=== PATIENT | female | born 1960 | race Caucasian/White ===

== ENCOUNTER 2020-09-16 15:53 | Outpatient (REF) | payer OTHER, SELFPAY ==
--- NOTE | ~2020-09-16 | XR_ITS ---
EXAMINATION: XR LUMBOSACRAL SPINE CLINICAL INFORMATION: Pain. COMPARISON: None TECHNIQUE: Three views of the lumbosacral spine. FINDINGS: There is normal lumbar lordosis. The vertebral heights, alignment and disc heights are normal. The intervening disc heights are normal. There is no visible acute fracture, dislocation or lytic process. The paravertebral soft tissues are normal. The SI joints are normal. XR/XR lumbar spine 2-3V IMPRESSION: Unremarkable lumbar spine exam.
== END 2020-09-16 15:54 | disposition home or self-care (01) ==
LOC: HO.XRAY 15:53
PROVIDERS: PCP Internal Medicine; Visit Provider Internal Medicine
DX: M54.9 Dorsalgia, unspecified (principal)
CPT/HCPCS: 72100

== ENCOUNTER 2020-09-22 13:49 | Emergency (ER) | payer OTHER, SELFPAY ==
[2020-09-22 15:09] VITALS: BP 140/80; PULSE 83; RESP 16; TEMP 36.8; O2SAT 99; BMI 26.2
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
[2020-09-22] MEDS: Ketorolac Tromethamine 30 MG/ML VIAL IM (16:36)
== END 2020-09-22 16:42 | disposition home or self-care (01) ==
PROVIDERS: Emergency Provider Emergency Medicine; PCP Internal Medicine
DX: M62.838 Other muscle spasm (principal); M54.6 Pain in thoracic spine; F17.210 Nicotine dependence, cigarettes, uncomplicated
CPT/HCPCS: 96372; 99283; 99284; J1885

== ENCOUNTER 2022-11-08 14:17 | Outpatient (AMB) | payer OTHER, SELFPAY ==
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
[2022-11-08 14:20] VITALS: BP 130/76; PULSE 76; O2SAT 97; BMI 22.5
== END 2022-11-08 14:32 | disposition home or self-care (01) ==
PROVIDERS: PCP Internal Medicine; Visit Provider Internal Medicine
DX: F41.9 Anxiety disorder, unspecified (principal)
CPT/HCPCS: 99213

== ENCOUNTER 2022-11-13 08:44 | Outpatient (REF) | payer OTHER, SELFPAY ==
[2022-11-13 08:54] LABS: MANUAL DIFF FLAG NO
[2022-11-13 10:14] LABS: Basophils Absolute Auto 0.1 X10*3/uL (0.0-0.2); Basophils Percent Auto 0.8 % (0-2); Eosinophils Absolute Auto 0.2 X10*3/uL (0.0-0.4); Eosinophils Percent Auto 3.1 % (0-4); Hematocrit 40.6 % (37.0-47.0); Hemoglobin 13.5 g/dl (12.0-16.0); Imm Gran Abs Auto 0.01 X10*3/uL (0.00-0.03); Imm Gran Pct Auto 0.2 % (0.0-0.4); Lymphocytes Absolute Auto 2.3 X10*3/uL (1.2-4.9); Lymphocytes Percent Auto 35.3 % (20-40); Mean Corpuscular HGB Conc 33.3 g/dl (31.0-35.0); Mean Corpuscular Hemoglobin 29.5 pg (27.0-33.0); Mean Corpuscular Volume 88.6 fL (80.0-98.0); Mean Platelet Volume 10.7 fL (9.4-12.3); Monocytes Absolute Auto 0.4 X10*3/uL (0.1-1.2); Monocytes Percent Auto 6.9 % (2-11); Neutrophils Absolute Auto 3.4 x10*3/uL (2.0-8.3); Neutrophils Percent Auto 53.7 % (45-73); Platelet Count 207 X10*3/uL (160-400); Red Blood Count 4.58 X10*6/uL (4.20-5.50); Red Cell Distribution Width 13.2 % (11.0-16.0); White Blood Count 6.4 X10*3/uL (4.8-10.8)
[2022-11-13 11:02] LABS: Alanine Aminotransferase 13 U/L (0-31); Alkaline Phosphatase 60 U/L (39-117); Anion Gap 15 (12-20); Aspartate Amino Transferase 23 U/L (5-31); Bilirubin Total 0.6 mg/dL (0.0-1.0); Blood Urea Nitrogen 13 mg/dL (9-16); Calcium 9.2 mg/dL (8.4-10.2); Carbon Dioxide 24 mmol/L (22-29); Chloride 109 mmol/L (96-108); Cholesterol 200 mg/dL; Estimated Glomerular Filt Rate > 60; Glucose Fasting 89 mg/dL (60-99); HDL Cholesterol 51 mg/dL; LDL Cholesterol Calculated 132 mg/dl; Potassium 3.8 mmol/L (3.3-5.1); Sodium 144 mmol/L (135-145); Total Protein 6.9 g/dL (6.5-8.0); Triglycerides 86 mg/dL
== END 2022-11-13 08:45 | disposition home or self-care (01) ==
LOC: HO.LAB 08:44
PROVIDERS: PCP Internal Medicine; Visit Provider Internal Medicine
DX: E78.5 Hyperlipidemia, unspecified (principal); N28.9 Disorder of kidney and ureter, unspecified; E03.9 Hypothyroidism, unspecified; D64.9 Anemia, unspecified
CPT/HCPCS: 36415; 80053; 80061; 84443; 85025

== ENCOUNTER 2022-12-11 08:48 | Outpatient (AMB) | payer OTHER, SELFPAY ==
--- NOTE | 2022-12-11 08:52 | A.OFFPC_ITS ---
Vital Signs 12/11/22 08:54 Height 5 ft 2 in Weight 123 lb 8 oz BMI 22.6 BP 110/70 Blood Pressure Location Lt brachial Position Sitting Pulse 86 Pulse Source Pulse Oximeter Pulse Oximetry (%) 97 Oxygen Delivery Method Room Air Intake Visit Reasons: 1mth f/u Intake Note: Patient is here to follow up on anxiety . Cctv Technician Required: No Drop Hammer Set Up Operator: Not Required per policy Accompanied by: Self / Same As Patient Allergies sulfamethoxazole [From BACTRIM] Allergy (Severe, Verified 12/11/22 08:53) ANAPHYLAXIS trimethoprim [From BACTRIM] Allergy (Severe, Verified 12/11/22 08:53) ANAPHYLAXIS acetaminophen [From PERCOCET] Allergy (Unknown, Verified 12/11/22 08:53) UNKNOWN oxycodone [From PERCOCET] Allergy (Unknown, Verified 12/11/22 08:53) UNKNOWN Tobacco use date assessed: 12/11/22 Fall risk assessment: No Falls in past year Last assessed Fall Risk: 12/11/22 Dental Screening Dental Screen Date: 12/11/22 Did you have a dental visit in the last 12 months?: No Did you have a dental problem in the last 6 months where you did not have access to dental care?: No Was dental information given to patient?: No HPI 1mth f/u HPI Details depression; refuses rx; waiting for therapist at [facility] Medical History (Updated 12/11/22 @ 09:30 by Dillon Mcgovern MD) Anxiety Surgical History No pertinent past surgical history Family History Father No problems noted. Mother No problems noted. Social History (Updated 12/11/22 @ 09:01 by MELONIE Adorno) Housing: Apartment Alcohol intake: never Patient Tobacco Use Status: Current someday Tobacco user Tobacco use type: Cigarette Cigarettes Per Day: 5 Years Smoked: 50 e-Cigarette/Vaping Use: Never Used Second Hand Smoke Exposure: Yes service: No Current occupational status: unemployed Cognitive needs: No Hearing needs: No Vision needs: No Questionnaire PHQ-9 Over the last 2 weeks, how often have you been bothered by any of the following problems? Depression Screening Interpretation: Negative Source: Developed by Drs. Wyatt Tang, Alaina Srivastava, Raimundo Burks and colleagues, with an educational harry from [employer]. Thrive Questionnaire Date Thrive assessed: 08/04/22 Currently or been in a relationship where the following occur: no concerns reported MARLINE-7 AMB Questionnaire MARLINE-7 Date MARLINE - 7 assessed: 12/11/22 Feeling nervous, anxious, or on edge: 1 = Several days Not being able to stop or control worryin = Several days Worrying too much about different things: 1 = Several days Trouble relaxin = Several days Being so restless that it is hard to sit still: 3 = Nearly every day Becoming easily annoyed or irritable: 1 = Several days Feeling afraid as if something awful might happen: 3 = Nearly every day Total MARLINE-7 score (0-4 normal; 5-9 mild; 10-14 moderate; 15-21 severe): 11 Source: Developed by Drs. Wyatt Tang, Alaina Srivastava, Raimundo Burks and colleagues, with an educational harry from [employer]. Review of Systems Const Denies chills, Denies headache(s) and Denies weight loss ENT Denies headache(s) Card Denies chest pain, Denies syncope, Denies irregular heart rhythm and Denies dyspnea Resp Denies chest congestion, Denies cough and Denies dyspnea GI Denies abdominal pain, Denies change in stool character, Denies nausea and Denies vomiting Musc Denies deformity and Denies joint swelling Neuro Denies syncope and Denies headache(s) Physical exam (Primary Care) Vital Signs: Last Vital Signs Pulse 86 12/11/22 08:54 BP 110/70 12/11/22 08:54 Pulse Ox 97 12/11/22 08:54 Oxygen Delivery Method Room Air 12/11/22 08:54 BMI result Body Mass Index 22.6 Tobacco/Smoking Status: Tobacco use Status Tobacco use date assessed 12/11/22 12/11/22 09:04 Patient Tobacco Use Status Current someday Tobacco 12/11/22 09:01 Tobacco use type Cigarette 12/11/22 09:01 e-Cigarette/Vaping Use Never Used 12/11/22 09:01 Depression Screening Interpretation: Negative Thrive Assessment: Date of Thrive Assessment Date Thrive assessed 08/04/22 12/11/22 08:52 Currently or been in a relationship where the following occur: no concerns reported Const General: cooperative, comfortable and no acute distress HENMT Head: Yes normal to inspection Eyes General: appearance normal, both eyes and all related structures Neck Neck: Yes normal visual inspection Skin Other: contact dermatitis on upper chest Assessment and Plan Assessment & Plan (1) Depression: Code(s): F32.A - Depression, unspecified Plan: see therapist Coding Level of Care Code Est Pt Level 3 (67051) Diagnoses Depression F32.A
[2022-12-11 08:54] VITALS: BP 110/70; PULSE 86; O2SAT 97; BMI 22.6
== END 2022-12-11 09:50 | disposition home or self-care (01) ==
PROVIDERS: PCP Internal Medicine; Visit Provider Internal Medicine
DX: F32.A Depression, unspecified (principal)
CPT/HCPCS: 99213

== ENCOUNTER 2023-03-16 09:00 | Outpatient (AMB) | payer MEDICARE, MEDICAID, SELFPAY ==
[2023-03-16 09:01] VITALS: BP 116/70; PULSE 82; O2SAT 99; BMI 25.8
--- NOTE | 2023-03-16 09:01 | A.OFFPC_ITS ---
Vital Signs 03/16/23 09:01 Height 5 ft 2 in Weight 141 lb BMI 25.8 BP 116/70 Blood Pressure Location Lt brachial Position Sitting Pulse 82 Pulse Source Pulse Oximeter Pulse Oximetry (%) 99 Oxygen Delivery Method Room Air Intake Visit Reasons: Annual Exam Director Internal Communications Required: No Lens Matcher: Not Required per policy Accompanied by: Self / Same As Patient Allergies sulfamethoxazole [From BACTRIM] Allergy (Severe, Verified 03/16/23 09:02) ANAPHYLAXIS trimethoprim [From BACTRIM] Allergy (Severe, Verified 03/16/23 09:02) ANAPHYLAXIS acetaminophen [From PERCOCET] Allergy (Unknown, Verified 03/16/23 09:02) UNKNOWN oxycodone [From PERCOCET] Allergy (Unknown, Verified 03/16/23 09:02) UNKNOWN Medication List - Last Reconciled 03/16/23 by Dillon Mcgovern MD albuterol sulfate 90 mcg/actuation (Ventolin HFA) 2 puffs inhalation Q4-6H PRN 30 days ketoconazole 400 mg (2 x 200 mg) PO DAILY Tobacco use date assessed: 12/11/22 Fall risk assessment: No Falls in past year Last assessed Fall Risk: 03/16/23 Dental Screening Dental Screen Date: 03/16/23 Did you have a dental visit in the last 12 months?: Yes Did you have a dental problem in the last 6 months where you did not have access to dental care?: No Was dental information given to patient?: Patient has dentist HPI Annual Exam HPI Details asthma on rx; doing [facility] Medical History Anxiety Surgical History No pertinent past surgical history Family History Father No problems noted. Mother No problems noted. Social History Housing: Apartment Alcohol intake: never Patient Tobacco Use Status: Current someday Tobacco user Tobacco use type: Cigarette Cigarettes Per Day: 5 Years Smoked: 50 e-Cigarette/Vaping Use: Never Used Second Hand Smoke Exposure: Yes service: No Current occupational status: unemployed Cognitive needs: No Hearing needs: No Vision needs: No Questionnaire Thrive Questionnaire Date Thrive assessed: 08/04/22 MARLINE-7 AMB Questionnaire MARLINE-7 Date MARLINE - 7 assessed: 12/11/22 Source: Developed by Drs. Wyatt Tang, Alaina Srivastava, Raimundo Burks and colleagues, with an educational harry from [employer]. Review of Systems Const Denies chills, Denies fatigue, Denies headache(s) and Denies weight loss Eyes Denies change in vision, Denies diplopia and Denies eye pain ENT Denies vertigo, Denies dizziness, Denies headache(s) and Denies nasal discharge Card Denies chest pain, Denies rapid heart rate and Denies dyspnea on exertion Resp Denies chest congestion, Denies cough, Denies pain with cough and Denies dyspnea on exertion GI Denies abdominal pain, Denies hematochezia and Denies change in bowel habits Musc Denies myalgias, Denies arthralgias and Denies joint swelling Skin/Breast Denies lesions and Denies unusual bruising Neuro Denies vertigo, Denies dizziness, Denies headache(s) and Denies focal weakness Endo Denies fatigue Physical exam (Primary Care) Vital Signs: Last Vital Signs Pulse 82 03/16/23 09:01 BP 116/70 03/16/23 09:01 Pulse Ox 99 03/16/23 09:01 Oxygen Delivery Method Room Air 03/16/23 09:01 BMI result Body Mass Index 25.8 Tobacco/Smoking Status: Tobacco use Status Tobacco use date assessed 12/11/22 03/16/23 09:07 Patient Tobacco Use Status Current someday Tobacco 03/16/23 09:07 Tobacco use type Cigarette 03/16/23 09:07 e-Cigarette/Vaping Use Never Used 03/16/23 09:07 Are you ready to quit: No Number of minutes spent counselin CPT code: 08381 - 4-10 Minutes Thrive Assessment: Date of Thrive Assessment Date Thrive assessed 08/04/22 03/16/23 09:07 Const General: cooperative, healthy appearing and no acute distress Orientation/consciousness: oriented to person, oriented to place and oriented to time HENMT Head: Yes normal to inspection, Yes normocephalic and Yes atraumatic Mouth: Normal oral and palatal mucosa present and tongue normal Throat: Yes posterior oropharynx normal and Yes uvula midline Eyes General: appearance normal, both eyes and all related structures Neck Neck: Yes normal visual inspection, Yes full ROM and Yes no lymphadenopathy Thyroid: Thyroid normal Carotids: normal carotid upstroke Chest Chest palpation & inspection: normal inspection of the chest Resp Effort & Inspection: normal respiratory effort and able to speak in complete sentences Auscultation: clear to auscultation bilaterally Cardio Jugular venous distension: no JVD Palpation: normal PMI Rate: regular rate Rhythm: regular rhythm Heart sounds: S1 normal heart sound present and S2 normal heart sound present GI Inspection: Yes normal to inspection Palpation (GI): Soft to palpation and No hepatosplenomegaly present Auscultation: normal bowel sounds General: Yes no CVA tenderness Back/Spine/Pelvis Back: no CVA tenderness Skin General skin exam: no rashes or lesions noted Neuro General: oriented to person, oriented to place and oriented to time Extrem General: Yes normal to inspection and Yes full ROM Assessment and Plan Assessment & Plan (1) Physical exam: Code(s): Z00.00 - Encounter for general adult medical examination without abnormal findings Plan: stable; do labs (2) Asthma: Code(s): J45.909 - Unspecified asthma, uncomplicated Plan: stable; same rx Orders: Orders Lipid Panel Today E78.5 - Hyperlipidemia, unspecified Complete Blood Count Auto Diff Today D64.9 - Anemia, unspecified Thyroid Stimulating Hormone Today E03.9 - Hypothyroidism, unspecified Comprehensive [place]. Panel Fast Today N28.9 - Disorder of kidney and ureter, unspecified MM tomosynthesis screen imp BI Today Z12.31 - Encounter for screening mammogram for malignant neoplasm of breast Medications: New ketoconazole 400 mg (2 x 200 mg) PO DAILY 60 tabs 3RF Coding Level of Care Code Est Pt Prev Care >65y(62390) Diagnoses Physical exam Z00.00 Asthma J45.909 Additional Codes Vital Signs *Quality* - CPT code: 78036 - 4-10 Minutes ([id number])
== END 2023-03-16 09:25 | disposition home or self-care (01) ==
PROVIDERS: PCP Internal Medicine; Visit Provider Internal Medicine
DX: Z00.00 Encounter for general adult medical examination without abnormal findings (principal); J45.909 Unspecified asthma, uncomplicated
CPT/HCPCS: 99397; 99406

== ENCOUNTER 2023-12-07 09:36 | Outpatient (AMB) | payer MEDICARE, MEDICAID, SELFPAY ==
[2023-12-07 09:37] VITALS: BP 122/72; PULSE 87; O2SAT 96; BMI 24.7
--- NOTE | 2023-12-07 09:37 | A.OFFPC_ITS ---
Vital Signs 12/07/23 09:37 Height 5 ft 2 in Weight 135 lb BMI 24.7 BP 122/72 Blood Pressure Location Lt brachial Position Sitting Pulse 87 Pulse Source Pulse Oximeter Pulse Oximetry (%) 96 Oxygen Delivery Method Room Air Intake Visit Reasons: Sinus infection Allergies sulfamethoxazole [From BACTRIM] Allergy (Severe, Verified 12/07/23 09:38) ANAPHYLAXIS trimethoprim [From BACTRIM] Allergy (Severe, Verified 12/07/23 09:38) ANAPHYLAXIS acetaminophen [From PERCOCET] Allergy (Unknown, Verified 12/07/23 09:38) UNKNOWN oxycodone [From PERCOCET] Allergy (Unknown, Verified 12/07/23 09:38) UNKNOWN Tobacco use date assessed: 12/07/23 Fall risk assessment: No Falls in past year Last assessed Fall Risk: 12/07/23 Dental Screening Dental Screen Date: 12/07/23 Did you have a dental visit in the last 12 months?: Yes Did you have a dental problem in the last 6 months where you did not have access to dental care?: No HPI Sinus infection HPI Details right max sinus pain and pressure PFSH Medical History Anxiety Surgical History No pertinent past surgical history Family History Father No problems noted. Mother No problems noted. Social History Housing: Apartment Alcohol intake: never Patient Tobacco Use Status: Current someday Tobacco user Tobacco use type: Cigarette Cigarettes Per Day: 5 Years Smoked: 50 e-Cigarette/Vaping Use: Never Used Second Hand Smoke Exposure: Yes service: No Current occupational status: unemployed Cognitive needs: No Hearing needs: No Vision needs: No Questionnaire PHQ-9 Over the last 2 weeks, how often have you been bothered by any of the following problems? 1. Little interest or pleasure in doing things: not at all 2. Feeling down, depressed, or hopeless: not at all 3. Trouble falling or staying asleep, or sleeping too much: not at all 4. Feeling tired or having little energy: not at all 5. Poor appetite or overeating: not at all 6. Feeling bad about yourself - or that you are a failure or have let yourself or your family down: not at all 7. Trouble concentrating on things, such as reading the newspaper or watching television: not at all 8. Moving or speaking so slowly that other people could have noticed. Or the opposite - being so fidgety or restless that you have been moving around a lot more than usual: not at all 9. Thoughts that you would be better off or of hurting yourself in some way: not at all Total score: 0 Depression Screening Interpretation: Negative Depression Screening Done: Yes Source: Developed by Drs. Wyatt Tang, Alaina Srivastava, Raimundo Burks and colleagues, with an educational harry from [employer]. Thrive Questionnaire Date Thrive assessed: 12/07/23 I am a: Patient What is your living situation today?: I have a steady place to live Within the past 12 months, did the food you bought not last and you didn't have the money to get more?: Never true Within the past 12 months, did you worry whether your food would run out before you got money to buy more?: Never true Do you have trouble paying for medicines?: No Do you have trouble getting transportation to medical appointments?: No Do you have trouble paying your heating and electricity bill?: No Do you have trouble taking care of your child, family member or friend?: No Do you have trouble with day-to-day activities such as bathing, preparing meals, shopping, managing finances, etc.?: No Are you currently unemployed and looking for a job?: No Are you interested in more education?: No THRIVE Score: 0 AUDIT C Alcohol Use Questionnaire (AUDIT-C) 1. How often do you have a drink containing alcohol?: Never 3. How often do you have six or more drinks on one occasion?: Never Total Score: 0 Score Reviewed/Action Taken: Yes MARLINE-7 AMB Questionnaire MARLINE-7 Date MARLINE - 7 assessed: 12/07/23 Feeling nervous, anxious, or on edge: 0 = Not at all Not being able to stop or control worryin = Not at all Worrying too much about different things: 0 = Not at all Trouble relaxin = Not at all Being so restless that it is hard to sit still: 0 = Not at all Becoming easily annoyed or irritable: 0 = Not at all Feeling afraid as if something awful might happen: 0 = Not at all Total MARLINE-7 score (0-4 normal; 5-9 mild; 10-14 moderate; 15-21 severe): 0 Source: Developed by Drs. Wyatt Tang, Alaina Srivastava, Raimundo Burks and colleagues, with an educational harry from [employer]. MARLINE-7 Assessment Billing MARLINE-7 Assessment Tool: MARLINE-7 Assessment 03505 Review of Systems Const Denies chills, Denies headache(s) and Denies weight loss ENT Denies headache(s) Card Denies chest pain, Denies syncope, Denies irregular heart rhythm and Denies dyspnea Resp Denies chest congestion, Denies cough and Denies dyspnea GI Denies abdominal pain, Denies change in stool character, Denies nausea and Denies vomiting Musc Denies deformity and Denies joint swelling Neuro Denies syncope and Denies headache(s) Physical exam (Primary Care) Vital Signs: Last Vital Signs Pulse 87 12/07/23 09:37 BP 122/72 12/07/23 09:37 Pulse Ox 96 12/07/23 09:37 Oxygen Delivery Method Room Air 12/07/23 09:37 BMI result Body Mass Index 24.7 Tobacco/Smoking Status: Tobacco use Status Tobacco use date assessed 12/07/23 12/07/23 09:39 Patient Tobacco Use Status Current someday Tobacco 12/07/23 09:37 Tobacco use type Cigarette 12/07/23 09:37 e-Cigarette/Vaping Use Never Used 12/07/23 09:37 PHQ-9: PHQ-9 Score PHQ-9: Total score 0 12/07/23 09:44 Depression Screening Interpretation: Negative Thrive Assessment: Date of Thrive Assessment Date Thrive assessed 12/07/23 12/07/23 09:39 Const General: cooperative, comfortable, no acute distress and alert Neck Neck: Yes no lymphadenopathy Thyroid: Thyroid normal Resp Effort & Inspection: normal respiratory effort Auscultation: clear to auscultation bilaterally Percussion: percussion normal Cardio Jugular venous distension: no JVD Palpation: normal PMI Rate: regular rate Rhythm: regular rhythm Heart sounds: S1 normal heart sound present and S2 normal heart sound present GI Inspection: Yes normal to inspection Palpation (GI): No hepatosplenomegaly present Skin General skin exam: no rashes or lesions noted Extrem General: Yes no clubbing, cyanosis or edema Assessment and Plan Assessment & Plan (1) Sinusitis: Code(s): J32.9 - Chronic sinusitis, unspecified Plan: rx sent Medications: New amoxicillin-pot clavulanate 500-125 mg (Augmentin) 1 tab PO BID 10 tabs 0RF Coding Level of Care Code Est Pt Level 3 (48670) Diagnoses Sinusitis J32.9 Additional Codes MARLINE-7 Assessment Billing - MARLINE-7 Assessment Tool: MARLINE-7 Assessment 41392 ([id number])
== END 2023-12-07 09:54 | disposition home or self-care (01) ==
PROVIDERS: PCP Internal Medicine; Visit Provider Internal Medicine
DX: J32.9 Chronic sinusitis, unspecified (principal)
CPT/HCPCS: 99213

== ENCOUNTER 2024-01-03 10:44 | Outpatient (AMB) | payer MEDICARE, MEDICAID, SELFPAY ==
--- NOTE | 2024-01-03 10:58 | A.OFFPC_ITS ---
Vital Signs 01/03/24 11:00 Height 5 ft 2 in Weight 136 lb 8 oz BMI 25.0 BP 130/70 Blood Pressure Location Rt brachial Position Sitting Pulse 76 Pulse Source Pulse Oximeter Pulse Oximetry (%) 97 Oxygen Delivery Method Room Air Intake Visit Reasons: Strained neck Intake Note: Patient is here to follow up on strained neck on the left side and radiate down left arm, ongoing for 7 days. OTC is not helping with pain. Supervising Producer Required: No Customer Experience Analyst: Not Required per policy Accompanied by: Self / Same As Patient Allergies sulfamethoxazole [From BACTRIM] Allergy (Severe, Verified 01/03/24 11:00) ANAPHYLAXIS trimethoprim [From BACTRIM] Allergy (Severe, Verified 01/03/24 11:00) ANAPHYLAXIS acetaminophen [From PERCOCET] Allergy (Unknown, Verified 01/03/24 11:00) UNKNOWN oxycodone [From PERCOCET] Allergy (Unknown, Verified 01/03/24 11:00) UNKNOWN Tobacco use date assessed: 01/03/24 Fall risk assessment: No Falls in past year Last assessed Fall Risk: 01/03/24 Dental Screening Dental Screen Date: 12/07/23 HPI Strained neck HPI Details 63-year-old female presents to the [facility] for a sick visit. I am the covering provider as her regular provider is away. Patient is complaining of neck pain for the past week. Was seen in the emergency room but discharged on no medications. Pain is mostly on the right side of the neck. Does not recall any fall or injury prior to the onset of symptoms. [facility] Medical History Anxiety Surgical History No pertinent past surgical history Family History Father No problems noted. Mother No problems noted. Social History Housing: Apartment Alcohol intake: never Patient Tobacco Use Status: Current someday Tobacco user Tobacco use type: Cigarette Cigarette Packs Per Day: 0.5 Cigarettes Per Day: 4 Years Smoked: 50 e-Cigarette/Vaping Use: Never Used Second Hand Smoke Exposure: Yes service: No Current occupational status: unemployed Cognitive needs: No Hearing needs: No Vision needs: No Questionnaire Thrive Questionnaire Date Thrive assessed: 12/07/23 MARLINE-7 AMB Questionnaire MARLINE-7 Date MARLINE - 7 assessed: 12/07/23 Source: Developed by Drs. Wyatt Tang, Alaina Srivastava, Raimundo Burks and colleagues, with an educational harry from [employer]. Physical exam (Primary Care) Vital Signs: Last Vital Signs Pulse 76 01/03/24 11:00 BP 130/70 01/03/24 11:00 Pulse Ox 97 01/03/24 11:00 Oxygen Delivery Method Room Air 01/03/24 11:00 BMI result Body Mass Index 25.0 Tobacco/Smoking Status: Tobacco use Status Tobacco use date assessed 01/03/24 01/03/24 11:06 Patient Tobacco Use Status Current someday Tobacco 01/03/24 11:06 Tobacco use type Cigarette 01/03/24 11:06 e-Cigarette/Vaping Use Never Used 01/03/24 11:06 Thrive Assessment: Date of Thrive Assessment Date Thrive assessed 12/07/23 01/03/24 11:06 Const General: cooperative and healthy appearing Nutritional Appearance: well nourished Orientation/consciousness: patient oriented x3 Limitations: no limitations HENMT Head: Yes normal to inspection Eyes General: appearance normal, both eyes and all related structures Neck Other: Neck: Right trapezius has mild discomfort. Full range of motion of the head with minimal discomfort. Neck: Yes normal visual inspection Chest Chest palpation & inspection: normal palpation of entire chest wall Resp Effort & Inspection: normal respiratory effort Neuro General: patient oriented x3 Assessment and Plan Assessment & Plan (1) Neck pain: Code(s): M54.2 - Cervicalgia Plan: Rest. Muscle relaxant and heating pad suggested. Anti-inflammatories called in. Medications: New meloxicam 15 mg PO DAILY 14 tabs 0RF cyclobenzaprine 10 mg PO BEDTIME 14 tabs 0RF Coding Level of Care Code Est Pt Level 3 (81487) Complex EM visit Add On G2211 Diagnoses Neck pain M54.2
[2024-01-03 11:00] VITALS: BP 130/70; PULSE 76; O2SAT 97; BMI 25.0
== END 2024-01-03 11:25 | disposition home or self-care (01) ==
LOC: HO.HMCH 10:44
PROVIDERS: PCP Internal Medicine; Visit Provider Internal Medicine
DX: M54.2 Cervicalgia (principal)

== ENCOUNTER → 2024-01-03 10:44 | Outpatient (BNVA) | payer MEDICARE, MEDICAID, SELFPAY | PROVIDERS: PCP Internal Medicine; Visit Provider Internal Medicine | DX: M54.2 Cervicalgia (principal) | CPT/HCPCS: 99212 ==

== ENCOUNTER 2024-01-25 14:10 | Outpatient (AMB) | payer MEDICARE, MEDICAID, SELFPAY ==
[2024-01-25 14:13] VITALS: BP 134/72; PULSE 84; O2SAT 94; BMI 24.7
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
== END 2024-01-25 14:37 | disposition home or self-care (01) ==
PROVIDERS: PCP Internal Medicine; Visit Provider Internal Medicine
DX: J45.909 Unspecified asthma, uncomplicated (principal)

== ENCOUNTER → 2024-01-25 14:10 | Outpatient (BNVA) | payer MEDICARE, MEDICAID, SELFPAY | PROVIDERS: PCP Internal Medicine; Visit Provider Internal Medicine | DX: J45.909 Unspecified asthma, uncomplicated (principal) | CPT/HCPCS: 96127; 99212 ==

== ENCOUNTER → 2024-04-08 10:11 | Outpatient (BNVA) | payer MEDICARE, MEDICAID, SELFPAY | PROVIDERS: PCP Internal Medicine; Visit Provider Internal Medicine | DX: Z00.00 Encounter for general adult medical examination without abnormal findings (principal); F17.210 Nicotine dependence, cigarettes, uncomplicated | CPT/HCPCS: 99397 ==

== ENCOUNTER 2024-04-08 10:33 | Outpatient (AMB) | payer MEDICARE, MEDICAID, SELFPAY ==
--- NOTE | 2024-04-08 10:14 | MHC.PC.OV ---
Vital Signs 04/08/24 10:15 Height 5 ft 2 in Weight 144 lb 8 oz BMI 26.4 BP 130/84 Blood Pressure Location Lt brachial Position Sitting Pulse 63 Pulse Source Pulse Oximeter Pulse Oximetry (%) 92 Oxygen Delivery Method Room Air Intake Visit Reasons: Annual Exam Intake Note: Patient is here today for a physical. Pt decline flu shot today. Hotel Dining Room Cashier Required: No Enterprise Resource Planning Consultant: Not Required per policy Accompanied by: Self / Same As Patient Allergies sulfamethoxazole [From BACTRIM] Allergy (Severe, Verified 04/08/24 10:15) ANAPHYLAXIS trimethoprim [From BACTRIM] Allergy (Severe, Verified 04/08/24 10:15) ANAPHYLAXIS acetaminophen [From PERCOCET] Allergy (Unknown, Verified 04/08/24 10:15) UNKNOWN oxycodone [From PERCOCET] Allergy (Unknown, Verified 04/08/24 10:15) UNKNOWN Medication List - Last Reconciled 04/08/24 by Dillon Mcgovern MD albuterol sulfate 90 mcg/actuation (Ventolin HFA) 2 puffs inhalation Q4-6H PRN 30 days cyclobenzaprine 10 mg PO BEDTIME meloxicam 15 mg PO DAILY Tobacco use date assessed: 04/08/24 Fall risk assessment: No Falls in past year Last assessed Fall Risk: 04/08/24 Dental Screening Dental Screen Date: 12/07/23 HPI Annual Exam HPI Details healthy [facility] Medical History Anxiety Surgical History No pertinent past surgical history Family History Father No problems noted. Mother No problems noted. Social History Housing: Apartment Alcohol intake: never Patient Tobacco Use Status: Current someday Tobacco user Tobacco use type: Cigarette Cigarette Packs Per Day: 0.5 Cigarettes Per Day: 4 Years Smoked: 50 e-Cigarette/Vaping Use: Never Used Second Hand Smoke Exposure: Yes service: No Current occupational status: unemployed Cognitive needs: No Hearing needs: No Vision needs: No Questionnaire Thrive Questionnaire Date Thrive assessed: 12/07/23 MARLINE-7 AMB Questionnaire MARLINE-7 Date MARLINE - 7 assessed: 12/07/23 Source: Developed by Drs. Wyatt Tang, Alaina Srivastava, Raimundo Burks and colleagues, with an educational harry from [employer]. Review of Systems Const Denies chills, Denies fatigue, Denies headache(s) and Denies weight loss Eyes Denies change in vision, Denies diplopia and Denies eye pain ENT Denies vertigo, Denies dizziness, Denies headache(s) and Denies nasal discharge Card Denies chest pain, Denies rapid heart rate and Denies dyspnea on exertion Resp Denies chest congestion, Denies cough, Denies pain with cough and Denies dyspnea on exertion GI Denies abdominal pain, Denies hematochezia and Denies change in bowel habits Musc Denies myalgias, Denies arthralgias and Denies joint swelling Skin/Breast Denies lesions and Denies unusual bruising Neuro Denies vertigo, Denies dizziness, Denies headache(s) and Denies focal weakness Endo Denies fatigue Physical exam (Primary Care) Vital Signs: Last Vital Signs Pulse 63 04/08/24 10:15 BP 130/84 04/08/24 10:15 Pulse Ox 92 04/08/24 10:15 Oxygen Delivery Method Room Air 04/08/24 10:15 BMI result Body Mass Index 26.4 Tobacco/Smoking Status: Tobacco use Status Tobacco use date assessed 04/08/24 04/08/24 10:19 Patient Tobacco Use Status Current someday Tobacco 04/08/24 10:19 Tobacco use type Cigarette 04/08/24 10:19 e-Cigarette/Vaping Use Never Used 04/08/24 10:19 Thrive Assessment: Date of Thrive Assessment Date Thrive assessed 12/07/23 04/08/24 10:19 Const General: cooperative, healthy appearing and no acute distress Orientation/consciousness: oriented to person, oriented to place and oriented to time [facility] Head: Yes normal to inspection, Yes normocephalic and Yes atraumatic Mouth: Normal oral and palatal mucosa present and tongue normal Throat: Yes posterior oropharynx normal and Yes uvula midline Eyes General: appearance normal, both eyes and all related structures Neck Neck: Yes normal visual inspection, Yes full ROM and Yes no lymphadenopathy Thyroid: Thyroid normal Carotids: normal carotid upstroke Chest Chest palpation & inspection: normal inspection of the chest Resp Effort & Inspection: normal respiratory effort and able to speak in complete sentences Auscultation: clear to auscultation bilaterally Cardio Jugular venous distension: no JVD Palpation: normal PMI Rate: regular rate Rhythm: regular rhythm Heart sounds: S1 normal heart sound present and S2 normal heart sound present GI Inspection: Yes normal to inspection Palpation (GI): Soft to palpation and No hepatosplenomegaly present Auscultation: normal bowel sounds General: Yes no CVA tenderness Back/Spine/Pelvis Back: no CVA tenderness Skin General skin exam: no rashes or lesions noted Neuro General: oriented to person, oriented to place and oriented to time Extrem General: Yes normal to inspection and Yes full ROM Coding Level of Care Code Est Pt Prev Care >65y(76479) Diagnoses Physical exam Z00.00 Assessment & Plan Assessment & Plan (1) Physical exam: Code(s): Z00.00 - Encounter for general adult medical examination without abnormal findings Category: Medical Plan: stable; do labs Orders: Referrals Gastroenterology Referral Z12.11 - Encounter for screening for malignant neoplasm of colon
[2024-04-08 10:15] VITALS: BP 130/84; PULSE 63; O2SAT 92; BMI 26.4
== END 2024-04-08 10:55 | disposition home or self-care (01) ==
PROVIDERS: PCP Internal Medicine; Visit Provider Internal Medicine
DX: Z00.00 Encounter for general adult medical examination without abnormal findings (principal)

== ENCOUNTER 2024-10-06 10:43 | Outpatient (AMB) | payer MEDICARE, MEDICAID, SELFPAY ==
--- OUTSIDE RECORDS SUMMARY | 2024-08-20 10:00 | XMS_ITS ---
Author Organization [facility] Address [address] [facility] [address] [place] [id number] Care Team Providers Care Massage Operator Name Role Phone Dillon Mcgovern MD Primary Care Provider Wyatt Arteaga [phone] REASON FOR VISIT Patient presents today for a colon screening Medications Medication SIG (Take, Route, Frequency, Duration) Notes Start Date End Date Status MiraLax (colon prep) 8.3 ounce ((238) grams mixed with Gatorade or Crystal Light orally begin at 5:00 p.m. the day before the procedure for 1 day 06/19/2019 Active Dulcolax (colon prep) 5 MG take at 3:00 p.m and 7:00p.m. Orally two tablets twice a day for one day for 1 day 06/19/2019 Active Encounters Encounter Location Date Provider Diagnosis [facility] [address] [address] 08/20/2024 Wyatt Peraza Plan Of Treatment No Information Progress Notes * BETTY SÁNCHEZDOB:1960 ([age] yo F)Acc No.[id number]:08/20/2024 Progress Notes Patient: BETTY PHILLIPS Provider: Dion ePraza MD :1960 A ge:64 Y S ex:Female Date:08/20/2024 Address:[address] Pcp:Dillon Mcgovern MD Subjective: * Chief Complaints: * 1 . Patient presents today for a colon screening. * Medical History: * Medications: T aking MiraLax (colon prep) 8.3 ounce ((238) grams mixed with Gatorade or Crystal Light orally begin at 5:00 p.m. the day before the procedure , Taking Dulcolax (colon prep) 5 MG Tablet Delayed Release take at 3:00 p.m and 7:00p.m. Orally two tablets twice a day for one day Objective: * Vitals: Assessment: Plan: * Treatment: * * The named appointment provid er may or may not be the originator of this progress note, and it is not deemed complete until electronically signed by the appointment provider. Sign off status: Pending * Provider: Dion Peraza MD Date: 0 08/20/2024 Generated for Janeth ayala/Etta/Cherylitting on: 0 10/06/2024 12:01 PM EDT
[2024-10-06 10:52] VITALS: BP 122/90; PULSE 86; TEMP 37.3; O2SAT 97; BMI 25.5
--- NOTE | 2024-10-06 10:52 | MHC.PC.OV ---
Vital Signs 10/06/24 10:52 Height 5 ft 2 in Weight 139 lb 8 oz BMI 25.5 BP 122/90 H Blood Pressure Location Lt brachial Position Sitting Pulse 86 Pulse Source Pulse Oximeter Temp 99.1 F Temp Source Oral Pulse Oximetry (%) 97 Oxygen Delivery Method Room Air Intake Visit Reasons: vaginal concerns Offset Label Rewinder Required: No Accompanied by: Self / Same As Patient Allergies sulfamethoxazole (From BACTRIM) Allergy (Severe, Verified 10/06/24 11:22) ANAPHYLAXIS trimethoprim (From BACTRIM) Allergy (Severe, Verified 10/06/24 11:22) ANAPHYLAXIS acetaminophen (From PERCOCET) Allergy (Unknown, Verified 10/06/24 11:22) UNKNOWN oxycodone (From PERCOCET) Allergy (Unknown, Verified 10/06/24 11:22) UNKNOWN Medication List - Last Reconciled 10/06/24 by BETTYE Montoya albuterol sulfate 90 mcg/actuation (Ventolin HFA) 2 puffs inhalation Q4-6H PRN 30 days Tobacco use date assessed: 10/06/24 Fall risk assessment: No Falls in past year Last assessed Fall Risk: 10/06/24 Dental Screening Dental Screen Date: 10/06/24 Did you have a dental visit in the last 12 months?: No Did you have a dental problem in the last 6 months where you did not have access to dental care?: No Was dental information given to patient?: No HPI vaginal concerns HPI Details The patient is 64 year old female presenting with a 3 month history of what she describes as a yeast infection that went on steroids She reports that at the beginning she noticed white discharge and purchase monistat cream and treated it herself Reports that she no longer seeing any discharge but she has been experiencing a very strong odor that she could describe of smelling like chemical She denies dysuria, urinary frequency, hematuria, denies itchiness, denies fever. Denies being sexually active. Reports going to the emergency room at [place] but was treated for these so she left after the to be urine sample Reports that she received a call from them that she had something in her urine but they refused to send her any prescription and told her to follow up with her doctor [facility] Medical History Anxiety Surgical History No pertinent past surgical history Family History Father No problems noted. Mother No problems noted. Social History Housing: Apartment Alcohol intake: never Patient Tobacco Use Status: Current someday Tobacco user Tobacco use type: Cigarette Cigarette Packs Per Day: 0.5 Cigarettes Per Day: 4 Years Smoked: 50 e-Cigarette/Vaping Use: Never Used Second Hand Smoke Exposure: Yes service: No Current occupational status: unemployed Cognitive needs: No Hearing needs: No Vision needs: No Questionnaire PHQ-9 Over the last 2 weeks, how often have you been bothered by any of the following problems? 1. Little interest or pleasure in doing things: not at all 2. Feeling down, depressed, or hopeless: not at all 3. Trouble falling or staying asleep, or sleeping too much: not at all 4. Feeling tired or having little energy: not at all 5. Poor appetite or overeating: not at all 6. Feeling bad about yourself - or that you are a failure or have let yourself or your family down: not at all 7. Trouble concentrating on things, such as reading the newspaper or watching television: not at all 8. Moving or speaking so slowly that other people could have noticed. Or the opposite - being so fidgety or restless that you have been moving around a lot more than usual: not at all 9. Thoughts that you would be better off or of hurting yourself in some way: not at all Total score: 0 Source: Developed by Drs. Wyatt Tang, Alaina Srivastava, Raimundo Burks and colleagues, with an educational harry from [employer]. Thrive Questionnaire Date Thrive assessed: 10/06/24 I am a: Patient What is your living situation today?: I choose not to answer this question Within the past 12 months, did the food you bought not last and you didn't have the money to get more?: I choose not to answer this question Within the past 12 months, did you worry whether your food would run out before you got money to buy more?: I choose not to answer this question Do you have trouble paying for medicines?: I choose not to answer this question Do you have trouble getting transportation to medical appointments?: I choose not to answer this question Do you have trouble paying your heating and electricity bill?: I choose not to answer this question Do you have trouble taking care of your child, family member or friend?: I choose not to answer this question Do you have trouble with day-to-day activities such as bathing, preparing meals, shopping, managing finances, etc.?: I choose not to answer this question Are you currently unemployed and looking for a job?: I choose not to answer this question Are you interested in more education?: I choose not to answer this question Please select the resources that you would like help with: None Currently or been in a relationship where the following occur: I choose not to answer THRIVE Score: 0 AUDIT C Alcohol Use Questionnaire (AUDIT-C) 1. How often do you have a drink containing alcohol?: Never 3. How often do you have six or more drinks on one occasion?: Never Total Score: 0 MARLINE-7 AMB Questionnaire MARLINE-7 Date MARLINE - 7 assessed: 10/06/24 Feeling nervous, anxious, or on edge: 0 = Not at all Not being able to stop or control worryin = Nearly every day Worrying too much about different things: 0 = Not at all Trouble relaxin = Not at all Being so restless that it is hard to sit still: 0 = Not at all Becoming easily annoyed or irritable: 0 = Not at all Feeling afraid as if something awful might happen: 0 = Not at all Total MARLINE-7 score (0-4 normal; 5-9 mild; 10-14 moderate; 15-21 severe): 3 Source: Developed by Drs. Wyatt Tang, Alaina Srivastava, Raimundo Burks and colleagues, with an educational harry from [employer]. Review of Systems Const Details: Denies chills, Denies fatigue, Denies fever(s), Denies headache(s) and Denies weakness Cardiac Denies chest pain, Denies claudication, Denies leg edema, Denies lightheadedness, Denies palpitations, Denies dyspnea, Denies dyspnea on exertion, Denies orthopnea and Denies other (Loss of consciousness) Resp Denies cough, Denies excessive phlegm production, Denies dyspnea, Denies dyspnea on exertion, Denies snoring and Denies wheezing Urinary: strong malodor urine, smelling like chemical, per patient Physical exam (Primary Care) Vital Signs: Last Vital Signs Temp 99.1 F 10/06/24 10:52 Pulse 86 10/06/24 10:52 BP 122/90 H 10/06/24 10:52 Pulse Ox 97 10/06/24 10:52 Oxygen Delivery Method Room Air 10/06/24 10:52 BMI result Body Mass Index 25.5 Tobacco/Smoking Status: Tobacco use Status Tobacco use date assessed 10/06/24 10/06/24 10:59 Patient Tobacco Use Status Current someday Tobacco 10/06/24 10:59 Tobacco use type Cigarette 10/06/24 10:59 e-Cigarette/Vaping Use Never Used 10/06/24 10:59 PHQ-9: PHQ-9 Score PHQ-9: Total score 0 10/06/24 11:45 Thrive Assessment: Date of Thrive Assessment Date Thrive assessed 10/06/24 10/06/24 10:59 Currently or been in a relationship where the following occur: I choose not to answer Const General: healthy appearing, no acute distress, alert and awake Nutritional Appearance: well nourished HENMT Ears: external ears normal General nose exam: Normal external nose present Eyes Conjunctivae: conjunctivae normal Sclerae: sclerae normal Neck Neck: Yes no lymphadenopathy and Yes no JVD Thyroid: Thyroid normal Carotids: no bruits Resp Effort & Inspection: normal respiratory effort and not tachypneic Auscultation: no crackles, no rales, no rhonchi and no wheezes Cardio Rate: regular rate Rhythm: regular rhythm Heart sounds: no murmurs and normal S1 and S2 GI Palpation (GI): Soft to palpation, nontender, no hepatomegaly and no splenomegaly Auscultation: normal bowel sounds General: Yes no CVA tenderness and Yes deferred (she denies any lesions) Back/Spine/Pelvis Back: no CVA tenderness Skin General skin exam: no rashes or lesions noted and dry skin Results AMB Urinalysis, Automated UA Leukoctes 0 James/uL Last Edit by MELONIE Adorno on 10/06/24 11:47 UA Nitrite Negative Last Edit by Frank Herrera A on 10/06/24 11:47 UA Urobilinogen 0 mg/dL Last Edit by Frank Herrera A on 10/06/24 11:47 UA Protein 0 mg/dL Last Edit by Frank Herrera A on 10/06/24 11:47 UA pH 5.5 Last Edit by Frank Herrera A on 10/06/24 11:47 UA Blood 2 Gabino/uL Last Edit by Frank Herrera A on 10/06/24 11:47 UA Specific [place] 1.030 Last Edit by Frank Herrera A on 10/06/24 11:47 UA Ketone Negative Last Edit by Frank Herrera A on 10/06/24 11:47 UA Bilirubin 0 mg/dL Last Edit by Frank Herrera A on 10/06/24 11:47 UA Glucose 0 mg/dL Last Edit by Frank Herrera [facility] on 10/06/24 11:47 Results Reviewed Results Reviewed: Laboratory Last Values Urine pH (Auto) 5.5 10/06/24 11:45 Specific [place] (Auto) 1.030 10/06/24 11:45 Urine Protein (Auto) 0 mg/dL 10/06/24 11:45 Glucose (UA)(Auto) 0 mg/dL 10/06/24 11:45 Urine Ketones (Auto) Negative 10/06/24 11:45 Urine Blood (Auto) 2 Gabino/uL H* 10/06/24 11:45 Urine Nitrite (Auto) Negative 10/06/24 11:45 Urine Bilirubin (Auto) 0 mg/dL 10/06/24 11:45 Urine Urobilinogen (Auto) 0 mg/dL 10/06/24 11:45 Leukocyte Esterase (Auto) 0 James/uL 10/06/24 11:45 Coding Level of Care Code Est Pt Level 3 (48689) Diagnoses Malodorous urine R82.90 White vaginal discharge N89.8 Time Spent (min) 29 Assessment & Plan Assessment & Plan (1) Malodorous urine: Code(s): R82.90 - Unspecified abnormal findings in urine Category: Medical Plan: Reports malodorous urine for 3 months, no other symptoms at this time. She denies being sexually active. UA and BV Panel ordered. (2) White vaginal discharge: Code(s): N89.8 - Other specified noninflammatory disorders of vagina Category: Medical Plan: Reports that she noticed white discharge at the beginning 3 months ago. She bought Monistat cream and treated this herself. The discharge went away but the urine odor continues. UA and BV panel ordered to further evaluate. Orders: Orders Bacterial Vaginosis Panel Today N89.8 - Other specified noninflammatory disorders of vagina, R82.90 - Unspecified abnormal findings in urine AMB Urinalysis Automated Today N89.8 - Other specified noninflammatory disorders of vagina UA CC w/rflx Micro + Cult Today R82.90 - Unspecified abnormal findings in urine Medications: Refilled albuterol sulfate 90 mcg/actuation (Ventolin HFA) 2 puffs inhalation Q4-6H PRN 8.5 grams 3RF shortness of breath or wheezing 30 days
== END 2024-10-06 11:43 | disposition home or self-care (01) ==
LOC: HO.HMCH 10:44
PROVIDERS: PCP Internal Medicine
DX: R82.90 Unspecified abnormal findings in urine (principal); N89.8 Other specified noninflammatory disorders of vagina

== ENCOUNTER → 2024-10-06 10:43 | Outpatient (BNVA) | payer MEDICARE, MEDICAID, SELFPAY | PROVIDERS: PCP Internal Medicine | DX: R82.90 Unspecified abnormal findings in urine (principal); N89.8 Other specified noninflammatory disorders of vagina; F17.210 Nicotine dependence, cigarettes, uncomplicated; Z71.3 Dietary counseling and surveillance | CPT/HCPCS: 81003; 99212 ==

== ENCOUNTER 2024-10-06 12:03 | Outpatient (REF) | payer MEDICARE, MEDICAID, SELFPAY ==
[2024-10-06 12:14] LABS: Appearance Urine Clear; Color Urine Yellow; Glucose Urine UA Negative (Negative); Leukocyte Esterase Urine Trace (Negative); Nitrite Urine Negative (Negative); Specific Gravity - Urine 1.025 (1.005-1.025); UMIC TRIGGER UACC YES; Urine Blood Small (1+) (Negative); Urine Ketones Trace mg/dL (Negative); Urine Protein Negative (Neg-Trace)
[2024-10-06 12:21] LABS: Bacteria Urine 2+ (None Seen); Hyaline Casts Urine 0-2 /LPF (0-2); RBC Urine 0-2 /HPF (0-2); Squamous Epithelial Cell Urine 0-2 /HPF (0-2); WBC Urine 0-5 /HPF (0-5)
[2024-10-06 13:11] LABS: Bacterial Vaginosis PCR NEGATIVE (Negative); Candida Group PCR NOT DETECTED (Not Detect); Candida glab krusei PCR NOT DETECTED (Not Detect); Trichomonas vaginalis PCR NOT DETECTED (Not Detect)
== END 2024-10-06 12:04 | disposition home or self-care (01) ==
LOC: HO.LNP 12:03
DX: R82.90 Unspecified abnormal findings in urine (principal); N89.8 Other specified noninflammatory disorders of vagina
CPT/HCPCS: 81001; 81515

== ENCOUNTER 2024-10-31 10:25 | Outpatient (AMB) | payer MEDICARE, MEDICAID, SELFPAY ==
--- OUTSIDE RECORDS SUMMARY | 2024-08-20 10:00 | XMS_ITS ---
Author Organization [facility] Address [address] [facility] [address] [place] [address] Care Team Providers Care Electrophysiology Technologist Name Role Phone Dillon Mcgovern MD Primary Care Provider Wyatt Arteaga [phone] REASON FOR VISIT Patient presents today for [...] Active Encounters Encounter Location Date Provider Diagnosis [facility] [address] [address] 08/20/2024 Wyatt Peraza Plan Of Treatment No Information Progress Notes * BETTY SÁNCHEZDOB:1960 ([age] yo F)Acc No.[id number]:08/20/2024 Progress Notes Patient: BETTY PHILLIPS Provider: Dion Peraza MD :1960 A ge:64 Y S ex:Female Date:08/20/2024 Address:[address] Pcp:Dillon Mcgovern MD Subjective: * Chief Complaints: [...] 08/20/2024 Generated for Janeth ayala/Etta/Cherylitting on: 0 10/31/2024 10:51 AM EDT
--- NOTE | 2024-10-31 10:45 | A.OFFPC_ITS ---
Vital Signs 10/31/24 10:46 Height 5 ft 2 in Weight 135 lb 2 oz BMI 24.7 BP 120/90 H Blood Pressure Location Lt brachial Position Sitting Pulse 84 Pulse Source Pulse Oximeter Temp 97.3 F Temp Source Temporal Artery Scan Pulse Oximetry (%) 98 Oxygen Delivery Method Room Air Intake Visit Reasons: EDNA DR Mcgovern Intake Note: Patient is here today for EDNA from Dr Mcgovern Deckhand Maintenance Required: No New Car Sales Manager: Not Required per policy Accompanied by: Self / Same As Patient Allergies sulfamethoxazole (From BACTRIM) Allergy (Severe, Verified 10/31/24 11:01) ANAPHYLAXIS trimethoprim (From BACTRIM) Allergy (Severe, Verified 10/31/24 11:01) ANAPHYLAXIS acetaminophen (From PERCOCET) Allergy (Unknown, Verified 10/31/24 11:01) UNKNOWN oxycodone (From PERCOCET) Allergy (Unknown, Verified 10/31/24 11:01) UNKNOWN Medication List - Last Reconciled 10/31/24 by BETTYE Montoya albuterol sulfate 90 mcg/actuation (Ventolin HFA) 2 puffs inhalation Q4-6H PRN 30 days Tobacco use date assessed: 10/31/24 Fall risk assessment: No Falls in past year Last assessed Fall Risk: 10/31/24 Dental Screening Dental Screen Date: 10/06/[address] Mcgovern HPI Details The patient is a 64-year-old female presenting to transition care from Dr. Mcgovern, who retired She has a history of depression, sinusitis, asthma, cervical radiculopathy Patient reports that she gets recurrent sinus infection and feeling like she can not breathe in [place] She reports that [place] their garbage [place] the river. The garbage floats down stream and affects the air quality in the [place], every time, she feels like she cannot breathe in [place], her breathing improves when she goes out of the town She is reports that she has a fungus on her right great toenail and she is also concern about small bumps in the back of her head Otherwise the patient reports that she is feeling okay. Denies any shortness of breath, chest pain, dizziness, abdominal pain or change in bowel habits. Denies urinary symptoms. [facility] Medical History Sinusitis Anxiety Surgical History No pertinent past surgical history Family History Father No problems noted. Mother No problems noted. Social History Housing: Apartment Alcohol intake: never Patient Tobacco Use Status: Current someday Tobacco user Tobacco use type: Cigarette Cigarette Packs Per Day: 0.25 Cigarettes Per Day: 2 Years Smoked: 50 e-Cigarette/Vaping Use: Never Used Second Hand Smoke Exposure: Yes service: No Current occupational status: unemployed Cognitive needs: No Hearing needs: No Vision needs: No Questionnaire Thrive Questionnaire Date Thrive assessed: 10/06/24 I am a: Patient What is your living situation today?: I choose not to answer this question Within the past 12 months, did the food you bought not last and you didn't have the money to get more?: I choose not to answer this question Within the past 12 months, did you worry whether your food would run out before you got money to buy more?: I choose not to answer this question Do you have trouble paying for medicines?: I choose not to answer this question Do you have trouble getting transportation to medical appointments?: I choose not to answer this question Do you have trouble paying your heating and electricity bill?: I choose not to answer this question Do you have trouble taking care of your child, family member or friend?: I choose not to answer this question Do you have trouble with day-to-day activities such as bathing, preparing meals, shopping, managing finances, etc.?: I choose not to answer this question Are you currently unemployed and looking for a job?: I choose not to answer this question Are you interested in more education?: I choose not to answer this question Please select the resources that you would like help with: None Currently or been in a relationship where the following occur: I choose not to answer THRIVE Score: 0 MARLINE-7 AMB Questionnaire MARLINE-7 Date MARLINE - 7 assessed: 10/06/24 Source: Developed by Drs. Wyatt Tang, Alaina Srivastava, Raimundo Burks and colleagues, with an educational harry from [employer]. Review of Systems Const Denies headache(s) Eyes Denies loss of vision ENT Denies vertigo, Denies dizziness, Denies headache(s) and Denies sore throat Card Denies chest pain, Denies leg edema and Denies lightheadedness Resp Denies cough, Denies hemoptysis and Denies wheezing GI Denies abdominal pain, Denies melena, Denies constipation, Denies diarrhea and Denies vomiting Denies urinary frequency, Denies dysuria and Denies urinary urgency Musc Denies arthralgias, Denies joint swelling, Denies numbness and Denies tingling Skin/Breast Reports pruritus, Reports nail changes (toenail fungus) and Reports new lesions (reports bumps in the back of head) Neuro Denies Abnormal speech present, Denies behavioral changes, Denies vertigo, Denies dizziness, Denies headache(s), Denies loss of vision, Denies memory loss, Denies numbness and Denies tingling Psych Denies anxiety, Denies behavioral changes, Denies depression, Denies memory loss and Denies panic attacks Rodriguez/Lymph Denies easy bleeding and Denies easy bruising Aller/Immun Denies wheezing Physical exam (Primary Care) Vital Signs: Last Vital Signs Temp 97.3 F 10/31/24 10:46 Pulse 84 10/31/24 10:46 BP 120/90 H 10/31/24 10:46 Pulse Ox 98 10/31/24 10:46 Oxygen Delivery Method Room Air 10/31/24 10:46 BMI result Body Mass Index 24.7 Tobacco/Smoking Status: Tobacco use Status Tobacco use date assessed 10/31/24 10/31/24 10:52 Patient Tobacco Use Status Current someday Tobacco 10/31/24 10:52 Tobacco use type Cigarette 10/31/24 10:52 e-Cigarette/Vaping Use Never Used 10/31/24 10:52 Thrive Assessment: Date of Thrive Assessment Date Thrive assessed 10/06/24 10/31/24 10:52 Currently or been in a relationship where the following occur: I choose not to answer Const General: healthy appearing, no acute distress, alert and awake Nutritional Appearance: well nourished Orientation/consciousness: oriented to person, oriented to place and oriented to time HENMT Head: Yes scalp lesion (folliculitis in the occipital region) Ears: TM's normal bilaterally General nose exam: Normal nasal mucous membranes and turbinates present Face and sinus: No sinus tenderness Mouth: Normal oral and palatal mucosa present Throat: Yes posterior oropharynx normal Eyes Conjunctivae: conjunctivae normal Sclerae: sclerae normal Pupils: Equal, round and reactive pupils present Neck Neck: Yes no lymphadenopathy and Yes no JVD Thyroid: Thyroid normal Carotids: no bruits Resp Effort & Inspection: normal respiratory effort and not tachypneic Auscultation: no crackles, no rales, no rhonchi and no wheezes Cardio Rate: regular rate Rhythm: regular rhythm Heart sounds: no murmurs and normal S1 and S2 GI Palpation (GI): Soft to palpation, nontender, no hepatomegaly and no splenomegaly Auscultation: normal bowel sounds General: Yes no CVA tenderness Back/Spine/Pelvis Back: no CVA tenderness Skin General skin exam: dry skin Lesions: lesion noted (two raised pustule to occipital region) Neuro General: oriented to person, oriented to place and oriented to time Cranial nerves: Yes Equal, round and reactive pupils present Speech: No Abnormal speech present Gait exam (Neuro): Normal gait present Motor exam (neuro): no tremor noted Extrem Right upper extremity: full ROM Left upper extremity: full ROM Right lower extremity: full ROM; no edema Left lower extremity: full ROM; no edema Psych Mental Status: mental status grossly normal Speech and movement: Normal speech and movement present Affect: normal affect Attitude: cooperative Thought process: Normal thought process present Coding Level of Care Code Est Pt Level 3 (43198) Diagnoses Toenail fungus B35.1 Folliculitis L73.9 Time Spent (min) 32 Assessment & Plan Assessment & Plan (1) Toenail fungus: Code(s): B35.1 - Tinea unguium Category: Medical Plan: Right great toes darken toenail. No pain or edema to area. No moisture noted. Ciclopirox 8% topical at bedtime x 4 weeks ordered. Contact office if area is not persists or worsens (2) Folliculitis: Code(s): L73.9 - Follicular disorder, unspecified Category: Medical Plan: Two small pustule areas at the root of hair follicles. Benzoyl peroxide 10% topical BID ordered. The patient to follow up with office for any concerns. Orders: Orders Lipid Panel 10/31/24 F32.A - Depression, unspecified, F41.9 - Anxiety disorder, unspecified, J45.909 - Unspecified asthma, uncomplicated, Z00.00 - Encounter for general adult medical examination without abnormal findings TSH reflex Free T4 10/31/24 F32.A - Depression, unspecified, F41.9 - Anxiety disorder, unspecified, J45.909 - Unspecified asthma, uncomplicated, Z00.00 - Encounter for general adult medical examination without abnormal findings Vitamin D 25-OH Total 10/31/24 F32.A - Depression, unspecified, F41.9 - Anxiety disorder, unspecified, J45.909 - Unspecified asthma, uncomplicated, Z00.00 - Encounter for general adult medical examination without abnormal findings Complete Blood Count Auto Diff 10/31/24 F32.A - Depression, unspecified, F41.9 - Anxiety disorder, unspecified, J45.909 - Unspecified asthma, uncomplicated, Z00.00 - Encounter for general adult medical examination without abnormal findings Comprehensive [place]. Panel Fast 10/31/24 F32.A - Depression, unspecified, F41.9 - Anxiety disorder, unspecified, J45.909 - Unspecified asthma, uncomplicated, Z00.00 - Encounter for general adult medical examination without abnormal findings UA CC w/rflx Micro + Cult 10/31/24 F32.A - Depression, unspecified, F41.9 - Anxiety disorder, unspecified, J45.909 - Unspecified asthma, uncomplicated, Z00.00 - Encounter for general adult medical examination without abnormal findings Medications: New benzoyl peroxide 10% 1 appl topical BID 60 grams 0RF ciclopirox 8% 1 appl topical BEDTIME 6.6 mL 0RF 4 weeks
[2024-10-31 10:46] VITALS: BP 120/90; PULSE 84; TEMP 36.3; O2SAT 98; BMI 24.7
--- OUTSIDE RECORDS SUMMARY | 2024-10-31 10:51 | XMS_ITS | Clinical Summary ---
Author Organization [facility] Address [address] [place] [address] Care Team Providers Care Museum Curator Name Role Phone Unavailable Primary Care Provider Unavailabl e Social History Tobacco Use Types Packs/Day Years Used Date Smoking Tobacco: Never Assessed Comments Unknown Sex and Gender Information Value Date Recorded Sex Assigned at Not on file Legal Sex Female 6:12 PM EDT Gender Identity Not on file Sexual Orientation Not on file Plan of Treatment Health Maintenance Due Date Last Done Comments Hepatitis C Virus Screening 1960 DTaP/Tdap/Td Vaccines (1 - Tdap) 1977 Pneumococcal Vaccines 50+ (1 of 1 - PCV) 2008 Zoster (Shingles) Vaccine (1 of 2) 2008 COVID-19 Vaccine ( - 2023-2 5 season) 2023 RSV Vaccine 60 years and old er and Patients (1 - 1-dose 75+ series) 2033 Hepatitis B Vaccines Aged Out No long er eligible based on patient's age to complete this topic
--- OUTSIDE RECORDS SUMMARY | 2024-10-31 10:51 | XMS_ITS | Clinical Summary ---
Author Organization [facility] ity Address [address] [place] [address] Care Team Providers Care Application Developer Manager Name Role Phone Unavailable Primary Care Provider Unavailabl e Social History Tobacco Use Types Packs/Day Years Used Date Smoking Tobacco: Never Assessed Comments Unknown Sex and Gender Information Value Date Recorded Sex Assigned at Not on file Legal Sex Female 5:27 AM EST Gender Identity Not on file Sexual Orientation Not on file Plan of Treatment Health Maintenance Due Date Last Done Comments Breast Cancer Screening 1960 DTaP,Tdap,and Td Vaccines (1 - Tdap) 1977 Pneumococcal Vaccine: 50+ Ye ars (1 of 1 - PCV) 2008 Zoster Vaccines (1 of 2) 2008 Colorectal Cancer Screening: Colonoscopy 03/19/2022 Depression Screening 03/19/2022 Hepatitis C Screening 03/19/2022 Osteoporosis Screening (Bone Density Screening) 03/19/2022 Social Influencers of Health Screening 03/19/2022 Falls Risk Assessment 2023 COVID-19 Vaccine ( - 2023-2 5 season) 2023 Influenza Vaccine (#1) 2024 RSV Immunization Adult Patie nts (1 - 1-dose 75+ series) 2033 HIB Vaccines Aged Out No longer eligi ble based on patient's age to complete this topic HPV Vaccines Aged Out No longer eligi ble based on patient's age to complete this topic Hepatitis A Vaccines Aged Out No long er eligible based on patient's age to complete this topic Hepatitis B Vaccines Aged Out No long er eligible based on patient's age to complete this topic IPV Vaccines Aged Out No longer eligi ble based on patient's age to complete this topic MMR Vaccines Aged Out No longer eligi ble based on patient's age to complete this topic Meningococcal ACWY Vaccine Aged Out N o longer eligible based on patient's age to complete this topic Meningococcal B Vaccine Aged Out No l onger eligible based on patient's age to complete this topic RSV Immunization Patients Un festus 20 months Aged Out No longer eligible b ased on patient's age to complete this topic Varicella Vaccines Aged Out No longer eligible based on patient's age to complete this topic
== END 2024-10-31 11:32 | disposition home or self-care (01) ==
LOC: HO.HMCH 10:26
DX: B35.1 Tinea unguium (principal); L73.9 Follicular disorder, unspecified

== ENCOUNTER 2024-10-31 10:25 | Outpatient (REF) | payer MEDICARE, MEDICAID, SELFPAY ==
[2024-10-31 11:56] LABS: MANUAL DIFF FLAG NO
[2024-10-31 12:12] LABS: Hematocrit 42.9 % (37.0-47.0); Hemoglobin 14.2 g/dl (12.0-16.0); Imm Gran Abs Auto 0.03 X10*3/uL (0.00-0.03); Imm Gran Pct Auto 0.3 % (0.0-0.4); Lymphocytes Absolute Auto 3.6 X10*3/uL (1.2-4.9); Mean Corpuscular HGB Conc 33.1 g/dl (31.0-35.0); Mean Corpuscular Hemoglobin 29.3 pg (27.0-33.0); Mean Corpuscular Volume 88.6 fL (80.0-98.0); NRBC Abs Auto 0.000 X10*3/uL (0.0-0.012); NRBC Pct Auto 0.0 /100WBC (0.0-0.2); Platelet Count 228 X10*3/uL (160-400); Red Blood Count 4.84 X10*6/uL (4.20-5.50); White Blood Count 9.0 X10*3/uL (4.8-10.8)
[2024-10-31 12:52] LABS: Alanine Aminotransferase 19 U/L (0-31); Albumin Level 4.7 g/dL (3.5-5.0); Alkaline Phosphatase 74 U/L (39-117); Anion Gap 12 (12-20); Aspartate Amino Transferase 36 U/L (5-31); Blood Urea Nitrogen 16 mg/dL (9-16); Calcium 8.7 mg/dL (8.4-10.2); Carbon Dioxide 26 mmol/L (22-29); Chloride 106 mmol/L (96-108); Cholesterol 202 mg/dL (<200); Estimated Glomerular Filt Rate 57; HDL Cholesterol 50 mg/dL (>40); Potassium 4.4 mmol/L (3.3-5.1); Sodium 140 mmol/L (135-145); Total Protein 7.7 g/dL (6.5-8.0); Triglycerides 117 mg/dL (<150)
[2024-10-31 12:56] LABS: Appearance Urine Clear; Glucose Urine UA Negative (Negative); PH 5.0 (5.0-9.0); Specific Gravity - Urine 1.025 (1.005-1.025); UMIC TRIGGER UACC YES
== END 2024-10-31 10:26 | disposition home or self-care (01) ==
LOC: HO.LAB 10:25
DX: B35.1 Tinea unguium (principal); L73.9 Follicular disorder, unspecified; Z00.00 Encounter for general adult medical examination without abnormal findings; F41.9 Anxiety disorder, unspecified; F32.A Depression, unspecified; J45.909 Unspecified asthma, uncomplicated
CPT/HCPCS: 36415; 80053; 80061; 81001; 82306; 84443; 85025; 99212

== ENCOUNTER 2024-12-04 10:57 | Outpatient (AMB) | payer MEDICARE, MEDICAID, SELFPAY ==
--- OUTSIDE RECORDS SUMMARY | 2024-08-20 10:00 | XMS_ITS ---
Author Organization [facility] Address [address] [facility] [address] [place] [phone] Care Team Providers Care Consumer Insights Intern Name Role Phone Dillon Mcgovern MD Primary Care Provider Wyatt Arteaga [phone] REASON FOR VISIT Patient presents today for [...] Active Encounters Encounter Location Date Provider Diagnosis [facility] [address] [address] 08/20/2024 Wyatt Peraza Plan Of Treatment No Information Progress Notes * BETTY SÁNCHEZDOB:1960 ([age] yo F)Acc No.[id number]:08/20/2024 Progress Notes Patient: BETTY PHILLIPS Provider: Dion Peraza MD :1960 A ge:64 Y S ex:Female Date:08/20/2024 Address:[address] Pcp:Dillon Mcgovern MD Subjective: * Chief Complaints: [...] 08/20/2024 Generated for Janeth ayala/Etta/Cherylitting on: 0 12/04/2024 12:29 PM EDT
[2024-12-04 10:58] VITALS: BP 108/80; PULSE 79; RESP 18; TEMP 36.1; O2SAT 96; BMI 25.6
--- NOTE | 2024-12-04 10:58 | MHC.PC.OV ---
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 Accompanied by: Self / Same As Patient Allergies sulfamethoxazole (From BACTRIM) Allergy (Severe, Verified 12/04/24 11:08) ANAPHYLAXIS trimethoprim (From BACTRIM) Allergy (Severe, Verified 12/04/24 11:08) ANAPHYLAXIS acetaminophen (From PERCOCET) Allergy (Unknown, Verified 12/04/24 11:08) UNKNOWN oxycodone (From PERCOCET) Allergy (Unknown, Verified 12/04/24 11:08) UNKNOWN Medication List - Last Reconciled 12/04/24 by BETTYE Montoya albuterol sulfate 90 mcg/actuation (Ventolin HFA) 2 puffs inhalation Q4-6H PRN 30 days benzoyl peroxide 10% 1 appl topical BID ciclopirox 8% 1 appl topical BEDTIME 4 weeks Tobacco use date assessed: 12/04/24 Fall risk assessment: No Falls in past year Last assessed Fall Risk: 12/04/24 Dental Screening Dental Screen Date: 12/04/24 Did you have a dental visit in the last 12 months?: No Did you have a dental problem in the last 6 months where you did not have access to dental care?: No Was dental information given to patient?: No HPI Seeking anxiety meds HPI Details The patient is a 64-year-old female presenting with anxiety disorder. She has a history of anxiety problems for which she previously took medication but managed to discontinue them. Recently, she has been experiencing increased anxiety due to environmental factors in her apartment, such as gas fumes and lack of fresh air, which also contribute to her difficulty sleeping. The patient reports that they are two threes close to her window, so when she opens the window, her allergies start acting up, and adds to her difficulty breathing. The patient reports frequent migraines, which she describes as severe and recurring, often leading to anxiety attacks. She has experienced migraines in the past but notes a recent resurgence, possibly linked to her current living conditions/anxiety. The patient reports that she finds herself driving away from her home to get fresh air, and worries when she has to go back home. This is affecting her sleep and wellbeing. She reports that there is a lot of [place] being [place] that is affecting the air quality in [place]. The patient also reports exacerbation of asthma symptoms, which she attributes to the inability to open windows and the presence of gas fumes in her apartment. She has been living in her current apartment for three years and has noticed a decline in her respiratory health during this time. Additionally, the patient experiences sinusitis, which she believes is aggravated by the lack of fresh air and environmental pollutants. She reports persistent sinus pain and congestion. Will start the patient on zoloft 25mg and have return in 6 weeks. [facility] Medical History Sinusitis Anxiety Surgical History No pertinent past surgical history Family History Father No problems noted. Mother No problems noted. Social History Housing: Apartment Alcohol intake: never Patient Tobacco Use Status: Current someday Tobacco user Tobacco use type: Cigarette Cigarette Packs Per Day: 0.25 Cigarettes Per Day: 2 Years Smoked: 50 e-Cigarette/Vaping Use: Never Used Second Hand Smoke Exposure: Yes service: No Current occupational status: unemployed Cognitive needs: No Hearing needs: No Vision needs: No Questionnaire PHQ-9 Over the last 2 weeks, how often have you been bothered by any of the following problems? 1. Little interest or pleasure in doing things: not at all 2. Feeling down, depressed, or hopeless: not at all 3. Trouble falling or staying asleep, or sleeping too much: not at all 4. Feeling tired or having little energy: not at all 5. Poor appetite or overeating: not at all 6. Feeling bad about yourself - or that you are a failure or have let yourself or your family down: not at all 7. Trouble concentrating on things, such as reading the newspaper or watching television: not at all 8. Moving or speaking so slowly that other people could have noticed. Or the opposite - being so fidgety or restless that you have been moving around a lot more than usual: not at all 9. Thoughts that you would be better off or of hurting yourself in some way: not at all Total score: 0 Source: Developed by Drs. yWatt Tang, Alaina Srivastava, Raimundo Burks and colleagues, with an educational harry from [employer]. Thrive Questionnaire Date Thrive assessed: 12/04/24 I am a: Patient What is your living situation today?: I choose not to answer this question Within the past 12 months, did the food you bought not last and you didn't have the money to get more?: I choose not to answer this question Within the past 12 months, did you worry whether your food would run out before you got money to buy more?: I choose not to answer this question Do you have trouble paying for medicines?: I choose not to answer this question Do you have trouble getting transportation to medical appointments?: I choose not to answer this question Do you have trouble paying your heating and electricity bill?: I choose not to answer this question Do you have trouble taking care of your child, family member or friend?: I choose not to answer this question Do you have trouble with day-to-day activities such as bathing, preparing meals, shopping, managing finances, etc.?: I choose not to answer this question Are you currently unemployed and looking for a job?: I choose not to answer this question Are you interested in more education?: I choose not to answer this question Please select the resources that you would like help with: None Currently or been in a relationship where the following occur: I choose not to answer THRIVE Score: 0 AUDIT C Alcohol Use Questionnaire (AUDIT-C) 1. How often do you have a drink containing alcohol?: Never 3. How often do you have six or more drinks on one occasion?: Never Total Score: 0 MARLINE-7 AMB Questionnaire MARLINE-7 Date MARLINE - 7 assessed: 12/04/24 Source: Developed by Drs. Wyatt Tang, Alaina Srivastava, Raimundo Burks and colleagues, with an educational harry from [employer] Review of Systems Const Denies body aches, Denies chills, Denies fever(s), Reports headache(s) (on and off, has been increasing) and Denies poor appetite Eyes Reports no additional complaints and Reports change in vision (when during headaches) ENT Denies dizziness, Reports headache(s) (on and off, has been increasing) and Reports nasal congestion Card Denies chest pain, Denies syncope, Denies edema, Denies irregular heart rhythm, Denies lightheadedness and Reports dyspnea (attributed to air quality) Resp Denies cough and Reports dyspnea (attributed to air quality) GI Denies abdominal pain, Denies diarrhea, Denies nausea and Denies vomiting Reports no additional complaints Musc Reports no additional complaints and Denies abnormal gait Skin/Breast Reports system reviewed and no additional complaints, except as documented Neuro Denies abnormal gait, Denies dizziness, Denies syncope and Reports headache(s) (on and off, has been increasing) Psych Reports no additional complaints, Reports anxiety (increasing due to living condition) and Reports depression Physical exam (Primary Care) Vital Signs: Last Vital Signs Temp 96.9 F 12/04/24 10:58 Pulse 79 12/04/24 10:58 Resp 18 12/04/24 10:58 BP 108/80 12/04/24 10:58 Pulse Ox 96 12/04/24 10:58 Oxygen Delivery Method Room Air 12/04/24 10:58 BMI result Body Mass Index 25.6 Tobacco/Smoking Status: Tobacco use Status Tobacco use date assessed 12/04/24 12/04/24 11:05 Patient Tobacco Use Status Current someday Tobacco 12/04/24 11:05 Tobacco use type Cigarette 12/04/24 11:05 e-Cigarette/Vaping Use Never Used 12/04/24 11:05 PHQ-9: PHQ-9 Score PHQ-9: Total score 0 12/04/24 11:26 Thrive Assessment: Date of Thrive Assessment Date Thrive assessed 12/04/24 12/04/24 11:05 Currently or been in a relationship where the following occur: I choose not to answer Const General: cooperative, healthy appearing, comfortable and no acute distress Orientation/consciousness: patient oriented x3 HENMT Head: Yes normocephalic Ears: hearing grossly normal bilaterally General nose exam: Normal external nose present Eyes General: appearance normal, both eyes and all related structures Conjunctivae: conjunctivae normal Neck Neck: Yes full ROM and Yes no lymphadenopathy Resp Effort & Inspection: normal respiratory effort Auscultation: clear to auscultation bilaterally, no crackles, no rales, no rhonchi and no wheezes Cardio Rate: regular rate Rhythm: regular rhythm Heart sounds: no murmurs Skin General skin exam: no rashes or lesions noted Neuro General: patient oriented x3 Gait exam (Neuro): Normal gait present Extrem General: Yes normal to inspection, Yes full ROM and No edema Psych Affect: normal affect Attitude: cooperative Insight: Good insight present (Psych) Judgement: Good judgement present (Psych) Coding Level of Care Code Est Pt Level 3 (83439) Diagnoses Anxiety F41.9 Depression, unspecified depression type F32.A Depression Type: unspecified Asthma, unspecified asthma severity, unspecified whether complicated, unspecified whether persistent J45.909 Asthma severity: unspecified severity Asthma persistence: unspecified Asthma complication type: unspecified Migraine without status migrainosus, not intractable, unspecified migraine type G43.909 Migraine type: unspecified Status migrainosus presence: without status migrainosus Intractability: not intractable Time Spent (min) 34 Assessment & Plan Assessment & Plan (1) Anxiety: Code(s): F41.9 - Anxiety disorder, unspecified Category: Medical (2) Depression: Code(s): F32.A - Depression, unspecified Category: Medical Qualifiers: Depression Type: unspecified Qualified Code(s): F32.A - Depression, unspecified (3) Asthma: Code(s): J45.909 - Unspecified asthma, uncomplicated Category: Medical Qualifiers: Asthma severity: unspecified severity Asthma persistence: unspecified Asthma complication type: unspecified Qualified Code(s): J45.909 - Unspecified asthma, uncomplicated (4) Migraine: Code(s): G43.909 - Migraine, unspecified, not intractable, without status migrainosus Category: Medical Qualifiers: Migraine type: unspecified Status migrainosus presence: without status migrainosus Intractability: not intractable Qualified Code(s): G43.909 - Migraine, unspecified, not intractable, without status migrainosus Plan The patient will be started on Zoloft at the lowest dose to manage her anxiety disorder. The plan is to monitor her response to the medication over the next few weeks and adjust the dosage as necessary. She is advised to increase her fluid intake to help with her migraines and overall health. A letter will be provided to assist her in relocating to a healthier living environment, which may help alleviate her asthma and anxiety symptoms. The patient is encouraged to have her eyes checked to rule out any vision-related causes of her headaches. Follow-up is scheduled in six weeks to assess the effectiveness of the treatment and make any necessary adjustments. Patient was informed and verbally consented to the use of an ambient scribe for clinic note documentation during this visit. Medications: New sertraline 25 mg PO DAILY 30 tabs 3RF
--- OUTSIDE RECORDS SUMMARY | 2024-12-04 12:29 | XMS_ITS | Clinical Summary ---
Author Organization [facility] ity Address [address] [place] [address] Care Team Providers Care Computational Physicist Name Role Phone Unavailable Primary Care Provider [...] 2) 2008 Colorectal Cancer Screening: Colonoscopy 03/19/2022 Hepatitis C Screening 03/19/2022 Osteoporosis Screening (Bone Density Screening) 03/19/2022 Social Influencers of Health Screening 03/19/2022 Falls Risk Assessment 2023 COVID-19 Vaccine ( - 2023-2 5 season) 2023 Depression Screening 04/16/2024 Influenza Vaccine (#1) 2024 RSV Immunization Adult [...]
--- OUTSIDE RECORDS SUMMARY | 2024-12-04 12:30 | XMS_ITS | Clinical Summary ---
Author Organization [facility] Address [address] [place] [address] Care Team Providers Care Nurse Executive Name Role Phone Unavailable Primary Care Provider [...]
== END 2024-12-04 11:29 | disposition home or self-care (01) ==
LOC: HO.HMCH 10:58
DX: F41.9 Anxiety disorder, unspecified (principal); F32.A Depression, unspecified; J45.909 Unspecified asthma, uncomplicated; G43.909 Migraine, unspecified, not intractable, without status migrainosus

== ENCOUNTER → 2024-12-04 10:57 | Outpatient (BNVA) | payer MEDICARE, MEDICAID, SELFPAY | DX: F41.9 Anxiety disorder, unspecified (principal); J45.909 Unspecified asthma, uncomplicated; G43.909 Migraine, unspecified, not intractable, without status migrainosus; F17.200 Nicotine dependence, unspecified, uncomplicated; Z71.6 Tobacco abuse counseling | CPT/HCPCS: 99212 ==

== ENCOUNTER 2025-01-09 15:00 | Outpatient (AMB) | payer MEDICARE, MEDICAID, SELFPAY ==
--- OUTSIDE RECORDS SUMMARY | 2024-08-20 10:00 | XMS_ITS ---
Author Organization [facility] Address 10 [facility] [address] [place] [phone] Care Team Providers Care Hydro Technician Name Role Phone Dillon Mcgovern MD Primary Care Provider Wyatt Arteaga [phone] REASON FOR VISIT Patient presents today for [...] Active Encounters Encounter Location Date Provider Diagnosis [facility] [address] [address] 08/20/2024 Wyatt Peraza Plan Of Treatment No Information Progress Notes * BETTY SÁNCHEZDOB:1960 ([age] yo F)Acc No.[id number]:08/20/2024 Progress Notes Patient: BETTY PHILLIPS Provider: Dion Peraza MD :1960 A ge:64 Y S ex:Female Date:08/20/2024 Address:[address] Pcp:Dillon Mcgovern MD Subjective: * Chief Complaints: [...] 08/20/2024 Generated for Janeth ayala/Etta/Cherylitting on: 0 01/09/2025 03:39 PM EDT
[2025-01-09 15:13] VITALS: BP 140/76; PULSE 73; RESP 18; O2SAT 95; BMI 25.6
--- NOTE | 2025-01-09 15:13 | MHC.PC.OV ---
Vital Signs 01/09/25 15:13 Height 5 ft 2 in Weight 140 lb 4 oz BMI 25.6 BP 140/76 H Blood Pressure Location Lt brachial Position Sitting Respiration 18 Pulse 73 Pulse Source Pulse Oximeter Temp Source Temporal Artery Scan Pulse Oximetry (%) 95 Oxygen Delivery Method Room Air Intake Visit Reasons: red bumps on head/itchy Tax Lawyer Required: No Accompanied by: Self / Same As Patient Allergies sulfamethoxazole (From BACTRIM) Allergy (Severe, Verified 01/09/25 15:32) ANAPHYLAXIS trimethoprim (From BACTRIM) Allergy (Severe, Verified 01/09/25 15:32) ANAPHYLAXIS acetaminophen (From PERCOCET) Allergy (Unknown, Verified 01/09/25 15:32) UNKNOWN oxycodone (From PERCOCET) Allergy (Unknown, Verified 01/09/25 15:32) UNKNOWN Medication List - Last Reconciled 01/11/25 by BETTYE Montoya albuterol sulfate 90 mcg/actuation (Ventolin HFA) 2 puffs inhalation Q4-6H PRN 30 days benzoyl peroxide 10% 1 appl topical BID cholecalciferol (vitamin D3) 50 mcg PO DAILY ciclopirox 8% 1 appl topical BEDTIME 4 weeks selenium sulfide 2.25% 1 appl topical DAILY 7 days sertraline 25 mg PO DAILY Tobacco use date assessed: 01/09/25 Fall risk assessment: No Falls in past year Last assessed Fall Risk: 01/09/25 Dental Screening Dental Screen Date: 01/09/25 Did you have a dental visit in the last 12 months?: No Did you have a dental problem in the last 6 months where you did not have access to dental care?: No Was dental information given to patient?: No HPI red bumps on head/itchy HPI Details The patient is a 64-year-old female presenting with concerns about worsening bumps on the scalp and sinus issues. The patient reports the presence of bumps on her scalp that have worsened over time, becoming itchy and spreading. She initially suspected lice and used lice medication without relief. The bumps are described as large and itchy, with some forming scabs due to scratching. The patient also reports sinus issues, with facial pain and discomfort, which she associates with her history of smoking. She has significantly reduced her smoking to one cigarette a day, experiencing flu-like symptoms during this reduction. The patient reports a history of hepatitis B and C, with the latter being treated successfully. Her hepatitis B viral load is low, requiring only monitoring. The patient has been diagnosed with hyperlipidemia, with LDL cholesterol levels showing a downward trend from 139 to 129 mg/dL. She admits to going on sugar binges, which may affect her cholesterol levels. The patient experiences depressive symptoms, which she attributes to her living situation and air quality concerns. She has not been taking Zoloft due to previous adverse effects with similar medications. She also is not interested in going to see a psychiatrist or therapist. [facility] Medical History Sinusitis Anxiety Surgical History No pertinent past surgical history Family History Father No problems noted. Mother No problems noted. Social History Housing: Apartment Alcohol intake: never Patient Tobacco Use Status: Current someday Tobacco user Tobacco use type: Cigarette Cigarette Packs Per Day: 0.25 Cigarettes Per Day: 2 Years Smoked: 50 Packs Per Year: 13 Packs per year/per ci.00 e-Cigarette/Vaping Use: Never Used Second Hand Smoke Exposure: Yes service: No Current occupational status: unemployed Cognitive needs: No Hearing needs: No Vision needs: No Questionnaire Thrive Questionnaire Date Thrive assessed: 10/06/24 I am a: Patient What is your living situation today?: I choose not to answer this question Within the past 12 months, did the food you bought not last and you didn't have the money to get more?: I choose not to answer this question Within the past 12 months, did you worry whether your food would run out before you got money to buy more?: I choose not to answer this question Do you have trouble paying for medicines?: I choose not to answer this question Do you have trouble getting transportation to medical appointments?: I choose not to answer this question Do you have trouble paying your heating and electricity bill?: I choose not to answer this question Do you have trouble taking care of your child, family member or friend?: I choose not to answer this question Do you have trouble with day-to-day activities such as bathing, preparing meals, shopping, managing finances, etc.?: I choose not to answer this question Are you currently unemployed and looking for a job?: I choose not to answer this question Are you interested in more education?: I choose not to answer this question Please select the resources that you would like help with: None Currently or been in a relationship where the following occur: I choose not to answer THRIVE Score: 0 AUDIT C Alcohol Use Questionnaire (AUDIT-C) 2. How many drinks containing alcohol do you have on a typical day when you are drinking?: 1 or 2 3. How often do you have six or more drinks on one occasion?: Never Total Score: 0 MARLINE-7 AMB Questionnaire MARLINE-7 Date MARLINE - 7 assessed: 12/04/24 Source: Developed by Drs. Wyatt Tang, Alaina Srivastava, Raimundo Burks and colleagues, with an educational harry from [employer]. Review of Systems Const Denies body aches, Denies chills, Denies fever(s), Reports headache(s) (on and off) and Denies poor appetite Eyes Reports no additional complaints ENT Denies dysphagia, Denies dizziness, Reports headache(s) (on and off), Denies odynophagia and Reports sinus pressure Card Denies chest pain, Denies syncope, Denies edema, Denies irregular heart rhythm, Denies lightheadedness and Reports dyspnea (on and off) Resp Denies cough and Reports dyspnea (on and off) GI Denies abdominal pain, Denies constipation, Denies dysphagia, Denies diarrhea, Denies nausea, Denies odynophagia and Denies vomiting Reports no additional complaints Musc Reports no additional complaints and Denies abnormal gait Skin/Breast Reports rash (itching lumps on scalp) Neuro Denies abnormal gait, Denies dizziness, Denies syncope and Reports headache(s) (on and off) Psych Reports depression Physical exam (Primary Care) Vital Signs: Last Vital Signs Pulse 73 01/09/25 15:13 Resp 18 01/09/25 15:13 BP 140/76 H 01/09/25 15:13 Pulse Ox 95 01/09/25 15:13 Oxygen Delivery Method Room Air 01/09/25 15:13 BMI result Body Mass Index 25.6 Tobacco/Smoking Status: Tobacco use Status Tobacco use date assessed 01/09/25 01/09/25 15:18 Patient Tobacco Use Status Current someday Tobacco 01/09/25 15:14 Tobacco use type Cigarette 01/09/25 15:14 e-Cigarette/Vaping Use Never Used 01/09/25 15:14 Thrive Assessment: Date of Thrive Assessment Date Thrive assessed 10/06/24 01/09/25 15:14 Currently or been in a relationship where the following occur: I choose not to answer Const General: cooperative, healthy appearing, comfortable and no acute distress Orientation/consciousness: patient oriented x3 HENMT Head: Yes normocephalic Ears: hearing grossly normal bilaterally General nose exam: Normal external nose present Eyes General: appearance normal, both eyes and all related structures Conjunctivae: conjunctivae normal Neck Neck: Yes full ROM and Yes no lymphadenopathy Resp Effort & Inspection: normal respiratory effort Auscultation: clear to auscultation bilaterally, no crackles, no rales, no rhonchi and no wheezes Cardio Rate: regular rate Rhythm: regular rhythm Heart sounds: S1 normal heart sound present and S2 normal heart sound present GI Palpation (GI): Soft to palpation, nontender and No hepatosplenomegaly present Auscultation: normal bowel sounds Skin Rashes: rashes noted (two erythematous, raised scaly bordered, central clearing areas ) occipital region Neuro General: patient oriented x3 Gait exam (Neuro): Normal gait present Extrem General: Yes normal to inspection, Yes full ROM and No edema Psych Affect: normal affect Attitude: cooperative Insight: Good insight present (Psych) Judgement: Good judgement present (Psych) Results Reviewed Results Reviewed: Laboratory Tests 10/31/24 10/31/24 11:51 11:55 WBC 9.0 RBC 4.84 Hgb 14.2 Hct 42.9 MCV 88.6 MCH 29.3 MCHC 33.1 RDW 13.4 Plt Count 228 MPV 11.0 Sodium 140 Potassium 4.4 Chloride 106 Carbon Dioxide 26 Anion Gap 12 BUN 16 Creatinine 0.97 Estimated GFR 57 Fasting Glucose 93 Calcium 8.7 Total Bilirubin 0.5 AST 36 H ALT 19 Alkaline Phosphatase 74 Total Protein 7.7 Albumin 4.7 Triglycerides 117 Cholesterol 202 H LDL Cholesterol, Calc 129 H HDL Cholesterol 50 25-OH Vitamin D Total 25.0 L TSH 1.51 Urine Color Yellow Urine Appearance Clear Urine pH 5.0 Ur Specific [place] 1.025 Urine Protein Negative Urine Glucose (UA) Negative Urine Ketones Negative Urine Blood Moderate (2+) H Urine Nitrite Negative Ur Leukocyte Esterase Negative Urine RBC 0-2 Urine WBC 0-5 Ur Squamous Epith Cells 0-2 Urine Bacteria None Seen Hyaline Casts 0-2 Coding Level of Care Code Est Pt Level 3 (87789) Diagnoses Tinea capitis B35.0 Depression, unspecified depression type F32.A Depression Type: unspecified Migraine without status migrainosus, not intractable, unspecified migraine type G43.909 Migraine type: unspecified Status migrainosus presence: without status migrainosus Intractability: not intractable Asthma, unspecified asthma severity, unspecified whether complicated, unspecified whether persistent J45.909 Asthma severity: unspecified severity Asthma persistence: unspecified Asthma complication type: unspecified Smoker F17.200 Elevated AST (SGOT) R74.01 Hyperlipidemia, unspecified hyperlipidemia type E78.5 Hyperlipidemia type: unspecified Time Spent (min) 34 Assessment & Plan Assessment & Plan (1) Tinea capitis: Code(s): B35.0 - Tinea barbae and tinea capitis Category: Medical Plan: Sodium sulfide 2.25% 1 up a good topically daily x7 days. Instruct the patient to leave the shampoo in her hair for 10 minutes before rinsing. (2) Depression: Code(s): F32.A - Depression, unspecified Category: Medical Qualifiers: Depression Type: unspecified Qualified Code(s): F32.A - Depression, unspecified Plan: The patient expressed concerns about depression related to her living situation, and it was suggested to consider environmental changes to improve mental health. Patient was started on sertraline 25 mg daily on her previous visit but has not started medication. Encouraged CBT. The patient declines being referred to a psychiatrist or therapist. (3) Migraine: Code(s): G43.909 - Migraine, unspecified, not intractable, without status migrainosus Category: Medical Qualifiers: Migraine type: unspecified Status migrainosus presence: without status migrainosus Intractability: not intractable Qualified Code(s): G43.909 - Migraine, unspecified, not intractable, without status migrainosus Plan: The reports on and off headaches that she attributes to her sinus and stress. Increase fluids intake, encouraged magnesium oxide 400 mg at bedtime. (4) Asthma: Code(s): J45.909 - Unspecified asthma, uncomplicated Category: Medical Qualifiers: Asthma severity: unspecified severity Asthma persistence: unspecified Asthma complication type: unspecified Qualified Code(s): J45.909 - Unspecified asthma, uncomplicated Plan: Patient reports intermittent dyspnea. Discussed with the patient that this might be related to her smoking. Continue rescue inhaler as needed. (5) Smoker: Code(s): F17.200 - Nicotine dependence, unspecified, uncomplicated Category: Social Hx Plan: Smoking cessation (6) Elevated AST (SGOT): Code(s): R74.01 - Elevation of levels of liver transaminase levels Category: Medical Plan: AST slightly elevated at 36. The patient reports and history of hepatitis B and C. Patient states that her hepatitis C was treated successfully and her hepatitis B viral load was extremely low and was told to continue monitoring but no other interventions were needed. Encouraged the patient to limit alcohol/drugs containing Tylenol or or acetaminophen/fatty foods intake. We will repeat CMP in 3 months (7) HLD (hyperlipidemia): Code(s): E78.5 - Hyperlipidemia, unspecified Category: Medical Qualifiers: Hyperlipidemia type: unspecified Qualified Code(s): E78.5 - Hyperlipidemia, unspecified Plan: Triglycerides 117, total cholesterol 202, LDL 129, HDL 50 Discussed lifestyle modifications including dietary changes and physical activity We will repeat lipid panel in 3 months Orders: Orders Comprehensive [place]. Panel Fast 3 Months E78.5 - Hyperlipidemia, unspecified, F17.200 - Nicotine dependence, unspecified, uncomplicated, G43.909 - Migraine, unspecified, not intractable, without status migrainosus, J45.909 - Unspecified asthma, uncomplicated, R74.01 - Elevation of levels of liver transaminase levels UA CC w/rflx Micro + Cult 3 Months E78.5 - Hyperlipidemia, unspecified, F17.200 - Nicotine dependence, unspecified, uncomplicated, G43.909 - Migraine, unspecified, not intractable, without status migrainosus, J45.909 - Unspecified asthma, uncomplicated, R74.01 - Elevation of levels of liver transaminase levels TSH reflex Free T4 3 Months E78.5 - Hyperlipidemia, unspecified, F17.200 - Nicotine dependence, unspecified, uncomplicated, G43.909 - Migraine, unspecified, not intractable, without status migrainosus, J45.909 - Unspecified asthma, uncomplicated, R74.01 - Elevation of levels of liver transaminase levels Complete Blood Count Auto Diff 3 Months E78.5 - Hyperlipidemia, unspecified, F17.200 - Nicotine dependence, unspecified, uncomplicated, G43.909 - Migraine, unspecified, not intractable, without status migrainosus, J45.909 - Unspecified asthma, uncomplicated, R74.01 - Elevation of levels of liver transaminase levels Lipid Panel 3 Months E78.5 - Hyperlipidemia, unspecified, F17.200 - Nicotine dependence, unspecified, uncomplicated, G43.909 - Migraine, unspecified, not intractable, without status migrainosus, J45.909 - Unspecified asthma, uncomplicated, R74.01 - Elevation of levels of liver transaminase levels Vitamin D 25-OH Total 3 Months E78.5 - Hyperlipidemia, unspecified, F17.200 - Nicotine dependence, unspecified, uncomplicated, G43.909 - Migraine, unspecified, not intractable, without status migrainosus, J45.909 - Unspecified asthma, uncomplicated, R74.01 - Elevation of levels of liver transaminase levels Medications: New selenium sulfide 2.25% massage into affected area; leave on for 10 mins ; rinse off thoroughly 1 appl topical DAILY 180 mL 0RF 7 days cholecalciferol (vitamin D3) 50 mcg PO DAILY 90 caps 3RF
--- OUTSIDE RECORDS SUMMARY | 2025-01-09 15:40 | XMS_ITS | Clinical Summary ---
Author Organization [facility] ity Address [address] [place] [address] Care Team Providers Care Wood Box Maker Name Role Phone Unavailable Primary Care Provider [...] Health Screening 03/19/2022 Falls Risk Assessment 2023 Depression Screening 04/16/2024 COVID-19 Vaccine ( - 2023-2 5 season) 2024 Influenza Vaccine (#1) 2024 RSV Immunization Adult [...]
--- OUTSIDE RECORDS SUMMARY | 2025-01-09 15:40 | XMS_ITS | Patient Health Record ---
Author Organization [facility] Address [address] [place] [id number] Care Team Providers Care Floor Cleaner Name Role Phone Dillon Mcgovern MD Primary Care Provider Wyatt Arteaga Unavailable [phone] Allergies Allergen (clinical drug ingredient) Drug/Non Drug Allergy documented on EMR Reaction Allergy Type Onset Date Status sulfamethoxazole / trimethoprim Bactrim Unknown Drug Allergy Active Reason For Referral No Information Medications Medication SIG (Take, Route, Frequency, Duration) [...] one day for 1 day 06/19/2019 Active Immunizations Vaccine Route Administration Date Status Comme nts Influenza Unknown 06/18/2019 Refused Social History Tobacco Use: Social History Observation Description Date Details (start date - stop date) Current Smoker NA - NA Tobacco Use/Smoking Question Answer Notes Patient is a current smoker How often do you smoke cigarettes? every day How many cigarettes a day do you smoke? 5 or les s How soon after you wake up d o you smoke your first cigarette? 31-60 minutes Are you interested in quitting? Thinking about q uitting Alcohol Screen Question Answer Notes Did you have a drink containing alcohol in the p ast year? No Points 0 Interpretation Negative Section Notes: Smoker 4 cigs QD; no sig alc ohol Problems Problem Type SNOMED Code ICD Code Onset Dates Problem Status W/U Status Risk Notes Problem [id number] Encounter for screening for malignant neoplasm of colon (Z12.11) Active confirmed Problem [id number] Preprocedural examination (Z01.818) Active confirmed Encounters Encounter Location Date Provider Diagnosis [facility] [address] [place] [address] 08/20/2024 Wyatt Peraza Plan Of Treatment Future Test Test Name Order Date COLONOSCOPY 06/18/2019 Insurance Providers Payer Name Payer Address Payer Phone Subscriber Number Group Number Insured Name Patient Relationship to Insured Coverage Start Date Coverage End Date MEDICARE OF [place] [address] [place] [id number] BETTY SÁNCHEZ Self - patient is the insured [facility]ICAID [facility] [address] [place] [address] [phone] [id number] BETTY SÁNCHEZ Self - patient is the insured Medical (General) History Medical History History ICD Code Denies AK,DM,CVA,Lung disease,renal dise ase Surgical History Surgery Date(Month/Year)
== END 2025-01-09 15:49 | disposition home or self-care (01) ==
LOC: HO.HMCH 15:01
DX: B35.0 Tinea barbae and tinea capitis (principal); F32.A Depression, unspecified; G43.909 Migraine, unspecified, not intractable, without status migrainosus; J45.909 Unspecified asthma, uncomplicated; F17.200 Nicotine dependence, unspecified, uncomplicated; R74.01 Elevation of levels of liver transaminase levels; E78.5 Hyperlipidemia, unspecified

== ENCOUNTER → 2025-01-09 15:00 | Outpatient (BNVA) | payer MEDICARE, MEDICAID, SELFPAY | DX: R74.01 Elevation of levels of liver transaminase levels (principal); F32.A Depression, unspecified; B35.0 Tinea barbae and tinea capitis; G43.909 Migraine, unspecified, not intractable, without status migrainosus; J45.909 Unspecified asthma, uncomplicated; F17.210 Nicotine dependence, cigarettes, uncomplicated; E78.5 Hyperlipidemia, unspecified; Z86.19 Personal history of other infectious and parasitic diseases | CPT/HCPCS: 99212 ==

== ENCOUNTER 2025-04-03 15:08 | Outpatient (AMB) | payer MEDICARE, MEDICAID, SELFPAY ==
--- OUTSIDE RECORDS SUMMARY | 2024-08-20 09:00 | XMS_ITS ---
Author Organization [facility] Address [address] [address] Care Team Providers Care Handicrafts Teacher Name Role Phone Dillon Mcgovern MD Primary Care Provider Wyatt Arteaga [phone] REASON FOR VISIT Patient presents today for a colon screening Medications Medication SIG (Take, Route, Frequency, Duration) Notes Start Date End Date Status MiraLax (colon prep) 8.3 ounce ((238) grams mixed with Gatorade or Crystal Light orally begin at 5:00 p.m. the day before the procedure; Duration: 1 day 06/19/2019 Active Dulcolax (colon prep) 5 MG Tablet Delayed Release take at 3:00 p.m and 7:00p.m. Orally two tablets twice a day for one day; Duration: 1 day 06/19/2019 Active Encounters Encounter Location Date Provider Diagnosis [facility] [address] [address] 08/20/2024 Wyatt Peraza Plan Of Treatment No Information Progress Notes * BETTY SÁNCHEZDOB:1960 ([age] yo F)Acc No.[id number]:08/20/2024 Progress Notes Patient: BETTY PHILLIPS Provider: Dion Peraza MD :1960 A ge:64 Y S ex:Female Date:08/20/2024 Address[address] Pcp:Dillon Mcgovern MD Subjective: * Chief Complaints: * P atient presents today for a colon screening * Medications: T akingMiraLax (colon prep) 8.3 ounce ((238) grams mixed with Gatorade or Crystal Light orally begin at 5:00 p.m. the day before the procedure Dulcolax (colon prep) 5 MG Tablet Delayed Release take at 3:00 p.m and 7:00p.m. Orally two tablets twice a day for one day Taking MiraLax (colon prep) 8.3 ounce ((238) grams mixed with Gatorade or Crystal Light orally begin at 5:00 p.m. the day before the procedure Taking Dulcolax (colon prep) 5 MG Tablet Delayed Release take at 3:00 p.m and 7:00p.m. Orally two tablets twice a day for one day Billing Information: * Procedure Codes: * The named appointment provid er may or may not be the originator of this progress note, and it is not deemed complete until electronically signed by the appointment provider. Sign off status: Pending * Provider: Dion Peraza MD Date: 0 08/20/2024 Generated for Janeth ayala/Etta/Ashvin on: 1 06/04/2024 04:20 PM EST
[2025-04-03 15:29] VITALS: BP 98/68; PULSE 81; RESP 18; O2SAT 95; BMI 26.7
--- NOTE | 2025-04-03 15:29 | MHC.PC.OV ---
Vital Signs 04/03/25 15:29 Height 5 ft 2 in Weight 146 lb BMI 26.7 BP 98/68 Blood Pressure Location Lt brachial Position Sitting Respiration 18 Pulse 81 Pulse Source Pulse Oximeter Temp Source Temporal Artery Scan Pulse Oximetry (%) 95 Oxygen Delivery Method Room Air Intake Visit Reasons: 5 months Front Office Developer Required: No Accompanied by: Self / Same As Patient Allergies sulfamethoxazole (From BACTRIM) Allergy (Severe, Verified 04/06/25 09:07) ANAPHYLAXIS trimethoprim (From BACTRIM) Allergy (Severe, Verified 04/06/25 09:07) ANAPHYLAXIS acetaminophen (From PERCOCET) Allergy (Unknown, Verified 04/06/25 09:07) UNKNOWN oxycodone (From PERCOCET) Allergy (Unknown, Verified 04/06/25 09:07) UNKNOWN Medication List - Last Reconciled 04/06/25 by BETTYE Montoya albuterol sulfate 90 mcg/actuation (Ventolin HFA) 2 puffs inhalation Q4-6H PRN 30 days azithromycin For 250 mg dose pack: take 500 mg today (day 1), then 250 mg for 4 days (days 2-5) PO benzoyl peroxide 10% 1 appl topical BID cholecalciferol (vitamin D3) 50 mcg PO DAILY ciclopirox 8% 1 appl topical BEDTIME 4 weeks fluticasone propionate 50 mcg/actuation 1 spray intranasal BID selenium sulfide 2.25% 1 appl topical DAILY 7 days sertraline 25 mg PO DAILY triamcinolone acetonide 0.1% 1 appl topical BID Tobacco use date assessed: 04/03/25 Fall risk assessment: No Falls in past year Last assessed Fall Risk: 04/03/25 Dental Screening Dental Screen Date: 04/03/25 Did you have a dental visit in the last 12 months?: No Did you have a dental problem in the last 6 months where you did not have access to dental care?: No Was dental information given to patient?: No HPI HPI Comments History of Present Illness Details The patient this is a 65-year-old female presenting for Tinea capitis, HLD, elevated AST, migraines, asthma, allergic rhinitis, depression follow up The patient has not completed pre-ordered labs has yet, encouraged the patient to get this done LUPE. She reports sinus infection, a persistent scalp condition, and a cough. She complains of stuffiness and facial pain from a sinus infection. Her scalp condition initially started on the top of her head and has now moved lower, with palpable scab-like lesions. She reports that previous treatment with a medicated shampoo for 10 days did not resolve the issue. For the past month, she has had a cough that is worse in the evening and has recently become productive of small amounts of yellow mucus. She attributes her allergy-like symptoms to a tree outside her window. She takes vitamin D and has noticed that her fingers appear straighter, although her knuckles remain swollen. Her last follow-up blood work for cholesterol was about six months ago, and she is due for repeat testing. Health Maintenance The patient is due for follow-up cholesterol monitoring. A fasting lab order will be placed, and she is instructed to complete the blood work as soon as possible. Social History - Diet: She reports having sugar cravings and has been eating a lot of sweets recently, identifying herself as a sugar addict. Results - No new lab or diagnostic results were reviewed during the visit. [facility] Medical History Sinusitis Anxiety Surgical History No pertinent past surgical history Family History Father No problems noted. Mother No problems noted. Social History Housing: Apartment Alcohol intake: never Patient Tobacco Use Status: Current someday Tobacco user Tobacco use type: Cigarette Cigarette Packs Per Day: 0.25 Cigarettes Per Day: 2 Years Smoked: 50 e-Cigarette/Vaping Use: Never Used Second Hand Smoke Exposure: Yes service: No Current occupational status: unemployed Cognitive needs: No Hearing needs: No Vision needs: No Questionnaire Thrive Questionnaire Date Thrive assessed: 04/03/25 I am a: Patient What is your living situation today?: I choose not to answer this question Within the past 12 months, did the food you bought not last and you didn't have the money to get more?: I choose not to answer this question Within the past 12 months, did you worry whether your food would run out before you got money to buy more?: I choose not to answer this question Do you have trouble paying for medicines?: I choose not to answer this question Do you have trouble getting transportation to medical appointments?: I choose not to answer this question Do you have trouble paying your heating and electricity bill?: I choose not to answer this question Do you have trouble taking care of your child, family member or friend?: I choose not to answer this question Do you have trouble with day-to-day activities such as bathing, preparing meals, shopping, managing finances, etc.?: I choose not to answer this question Are you currently unemployed and looking for a job?: I choose not to answer this question Are you interested in more education?: I choose not to answer this question Please select the resources that you would like help with: None Currently or been in a relationship where the following occur: I choose not to answer THRIVE Score: 0 MARLINE-7 AMB Questionnaire MARLINE-7 Date MARLINE - 7 assessed: 12/04/24 Source: Developed by Drs. Wyatt Tang, Alaina Srivastava, Raimundo Burks and colleagues, with an educational harry from [employer]. Review of Systems Narrative Review of Systems - HEENT: Reports facial pain, nasal stuffiness, and difficulty breathing through her nose. - Respiratory: Reports a productive cough for one month, producing small amounts of yellow mucus, which is worse in the evening. - Dermatologic: Reports a scalp condition with lesions that feel like scabs. - Constitutional: Reports excessive sweating. - Musculoskeletal: Reports swollen knuckles but also notes her fingers appear straighter. Const Denies body aches, Denies chills, Denies fever(s), Reports headache(s) (on and off) and Denies poor appetite Eyes Reports itchy eyes ENT Denies dysphagia, Denies dizziness, Reports facial pain, Reports headache(s) (on and off), Reports nasal congestion, Denies odynophagia and Reports sinus pressure Card Denies chest pain, Denies syncope, Denies edema, Denies irregular heart rhythm, Denies lightheadedness and Reports dyspnea (on and off) Resp Reports cough (Mostly phlegm with some yellowish streaks) and Reports dyspnea (on and off) GI Denies abdominal pain, Denies constipation, Denies dysphagia, Denies diarrhea, Denies nausea, Denies odynophagia and Denies vomiting Reports no additional complaints Musc Reports no additional complaints and Denies abnormal gait Skin/Breast Reports rash (itching lumps on scalp) Neuro Denies abnormal gait, Denies dizziness, Denies syncope and Reports headache(s) (on and off) Psych Reports depression Aller/Immun Reports itchy eyes Physical exam (Primary Care) Vital Signs: Last Vital Signs Pulse 81 04/03/25 15:29 Resp 18 04/03/25 15:29 BP 98/68 04/03/25 15:29 Pulse Ox 95 04/03/25 15:29 Oxygen Delivery Method Room Air 04/03/25 15:29 BMI result Body Mass Index 26.7 Tobacco/Smoking Status: Tobacco use Status Tobacco use date assessed 04/03/25 04/03/25 15:35 Patient Tobacco Use Status Current someday Tobacco 04/03/25 15:35 Tobacco use type Cigarette 04/03/25 15:35 e-Cigarette/Vaping Use Never Used 04/03/25 15:35 Thrive Assessment: Date of Thrive Assessment Date Thrive assessed 04/03/25 04/03/25 15:35 Currently or been in a relationship where the following occur: I choose not to answer Narrative Physical Exam - Scalp: Localized swelling and inflammation noted. - Lungs: Clear to auscultation bilaterally. - Nose: Examination consistent with severe allergies. Const General: cooperative, healthy appearing, comfortable and no acute distress Orientation/consciousness: patient oriented x3 [facility] Head: Yes normocephalic Ears: hearing grossly normal bilaterally General nose exam: Normal external nose present Eyes General: appearance normal, both eyes and all related structures Conjunctivae: conjunctivae normal Neck Neck: Yes full ROM and Yes no lymphadenopathy Resp Effort & Inspection: normal respiratory effort Auscultation: clear to auscultation bilaterally, no crackles, no rales, no rhonchi and no wheezes Cardio Rate: regular rate Rhythm: regular rhythm Heart sounds: S1 normal heart sound present and S2 normal heart sound present GI Palpation (GI): Soft to palpation, nontender and No hepatosplenomegaly present Auscultation: normal bowel sounds Skin Rashes: rashes noted (two erythematous, raised scaly bordered, central clearing areas ) Neuro General: patient oriented x3 Gait exam (Neuro): Normal gait present Extrem General: Yes normal to inspection, Yes full ROM and No edema Psych Affect: normal affect Attitude: cooperative Insight: Good insight present (Psych) Judgement: Good judgement present (Psych) Coding Level of Care Code Est Pt Level 4 (07966) Diagnoses Tinea capitis B35.0 Depression, unspecified depression type F32.A Depression Type: unspecified Migraine without status migrainosus, not intractable, unspecified migraine type G43.909 Migraine type: unspecified Status migrainosus presence: without status migrainosus Intractability: not intractable Asthma, unspecified asthma severity, unspecified whether complicated, unspecified whether persistent J45.909 Asthma severity: unspecified severity Asthma persistence: unspecified Asthma complication type: unspecified Smoker F17.200 Elevated AST (SGOT) R74.01 Hyperlipidemia, unspecified hyperlipidemia type E78.5 Hyperlipidemia type: unspecified Rhinosinusitis J32.9 Time Spent (min) 39 Assessment & Plan Assessment & Plan (1) Tinea capitis: Code(s): B35.0 - Tinea barbae and tinea capitis Category: Medical Plan: Selsum sulfide shampoo was ordered on previous visit Reports using without much improvement Triamcinolone 0.1% topical b.i.d. added (2) Depression: Code(s): F32.A - Depression, unspecified Category: Medical Qualifiers: Depression Type: unspecified Qualified Code(s): F32.A - Depression, unspecified Plan: The patient expressed concerns about depression related to her living situation, and it was suggested to consider environmental changes to improve mental health. Patient was started on sertraline 25 mg daily on her previous visit but has not started medication. Encouraged CBT. The patient declines being referred to a psychiatrist or therapist. (3) Migraine: Code(s): G43.909 - Migraine, unspecified, not intractable, without status migrainosus Category: Medical Qualifiers: Migraine type: unspecified Status migrainosus presence: without status migrainosus Intractability: not intractable Qualified Code(s): G43.909 - Migraine, unspecified, not intractable, without status migrainosus Plan: The reports on and off headaches that she attributes to her sinus and stress. Increase fluids intake, encouraged magnesium oxide 400 mg at bedtime. (4) Asthma: Code(s): J45.909 - Unspecified asthma, uncomplicated Category: Medical Qualifiers: Asthma severity: unspecified severity Asthma persistence: unspecified Asthma complication type: unspecified Qualified Code(s): J45.909 - Unspecified asthma, uncomplicated Plan: Patient reports intermittent dyspnea. Discussed with the patient that this might be related to her smoking. Continue rescue inhaler as needed. (5) Smoker: Code(s): F17.200 - Nicotine dependence, unspecified, uncomplicated Category: Social Hx Plan: Smoking cessation (6) Elevated AST (SGOT): Code(s): R74.01 - Elevation of levels of liver transaminase levels Category: Medical Plan: AST slightly elevated at 36. The patient reports and history of hepatitis B and C. Patient states that her hepatitis C was treated successfully and her hepatitis B viral load was extremely low and was told to continue monitoring but no other interventions were needed. Encouraged the patient to limit alcohol/drugs containing Tylenol or or acetaminophen/fatty foods intake. We will repeat CMP in 3 months (7) HLD (hyperlipidemia): Code(s): E78.5 - Hyperlipidemia, unspecified Category: Medical Qualifiers: Hyperlipidemia type: unspecified Qualified Code(s): E78.5 - Hyperlipidemia, unspecified Plan: Triglycerides 117, total cholesterol 202, LDL 129, HDL 50 on October,-has not completed preordered labs, encouraged to get this done as soon as possible. Discussed lifestyle modifications including dietary changes and physical activity We will continue to monitor (8) Rhinosinusitis: Code(s): J32.9 - Chronic sinusitis, unspecified Category: Medical Plan: The combination of sinus symptoms, a month-long cough, and productive yellow mucus suggests a bacterial infection superimposed on underlying allergies. A Z-Nima will be prescribed for the infection, along with a nasal spray. It was also recommended that she use an hpiv-jih-hzlpbll antihistamine, such as Claritin or Zyrtec, as needed for about a week to manage allergy symptoms Plan Plan Patient was informed and verbally consented to the use of an ambient scribe for clinic note documentation during this visit. 1. Tinea capitis The patient's scalp condition is assessed as an inflammatory process with some associated inflammation, not ringworm. The plan is to add a topical steroid to be used twice daily and to continue using the medicated shampoo a couple of times per week. A prescription for triamcinolone will be attempted, though insurance coverage is uncertain. 2. Acute Sinusitis And Acute Bronchitis The combination of sinus symptoms, a month-long cough, and productive yellow mucus suggests a bacterial infection superimposed on underlying allergies. A Z-Nima will be prescribed for the infection, along with a nasal spray. It was also recommended that she use an nivs-xnr-naubfzs antihistamine, such as Claritin or Zyrtec, as needed for about a week to manage allergy symptoms. 3. Follow-Up A follow-up appointment is scheduled in three months to monitor her conditions. Discussion Notes I explained to the patient that her scalp condition is an inflammatory process due to an overgrowth of normal skin jason, not a bug or infestation. We will treat it by adding a topical steroid to her current medicated shampoo regimen. Regarding her cough and sinus symptoms, I noted that the production of yellow mucus suggests a bacterial component. Therefore, I am prescribing a course of antibiotics (Z-Nima) and a nasal spray. I also recommended short-term, as-needed use of an vthw-juk-lbnzgfu antihistamine like Claritin for her underlying allergies. We discussed the need for follow-up fasting blood work to monitor her cholesterol. I have scheduled a follow-up visit in three months to check on her progress. Patient Instructions - Apply the new cream to your scalp two times a day as directed. - Continue to use your medicated shampoo a couple of times per week. - Take the Z-Nima antibiotic as prescribed to treat the infection. - Use the prescribed nasal spray for your sinus symptoms. - You may use an pkyh-drz-nsbnyef allergy medicine like Claritin or Zyrtec as needed for about a week to help with allergy symptoms. - Please go to a lab to get your blood work done as soon as you can. - You must fast (do not eat or drink anything except water) before the blood test. - Please schedule a follow-up appointment to be seen in three months. Medications: New triamcinolone acetonide 0.1% 1 appl topical BID 30 grams 1RF L21.9 - Seborrheic dermatitis, unspecified fluticasone propionate 50 mcg/actuation administer into each nostril 1 spray intranasal BID 16 grams 0RF azithromycin For 250 mg dose pack: take 500 mg today (day 1), then 250 mg for 4 days (days 2-5) PO 6 tabs 0RF
--- OUTSIDE RECORDS SUMMARY | 2025-04-03 16:21 | XMS_ITS | Clinical Summary ---
Author Organization [facility] Address [address] [place] [address] Care Team Providers Care Process Control Manager Name Role Phone Unavailable Primary Care [...] Health Maintenance Due Date Last Done Comments Advance Care Planning 1960 Hepatitis C Virus Screening 1960 DTaP/Tdap/Td Vaccines (1 - Tdap) 1977 Pneumococcal Vaccines 50+ (1 of 1 - PCV) 2008 Zoster (Shingles) Vaccine (1 of 2) 2008 COVID-19 Vaccine ( - 2024-2 6 season) 2024 RSV Vaccine 50 years and old er and Patients (1 - 1-dose 75+ series) 2033 Hepatitis B Vaccines Aged Out No long er eligible based on patient's age to complete this topic
--- OUTSIDE RECORDS SUMMARY | 2025-04-03 16:21 | XMS_ITS | Clinical Summary ---
Author Organization [facility] Address [address] [place] [address] Care Team Providers Care Brazer Controlled Atmospheric Furnace Name Role Phone Unavailable Primary Care Provider [...] Last Done Comments Breast Cancer Screening 1960 Colorectal Cancer Screening: Colonoscopy 1960 DTaP,Tdap,and Td Vaccines (1 - Tdap) 1977 Pneumococcal Vaccine: 50+ Ye ars (1 of 1 - PCV) 2008 Zoster Vaccines (1 of 2) 2008 Hepatitis C Screening 03/19/2022 Osteoporosis Screening (Bone Density Screening) 03/19/2022 Social Influencers of Health Screening 03/19/2022 Falls Risk Assessment 2023 Depression Screening 04/16/2024 COVID-19 Vaccine (1 - 2024-2 6 season) 2024 Influenza Vaccine (#1) 2024 RSV [...]
--- OUTSIDE RECORDS SUMMARY | 2025-04-03 16:21 | XMS_ITS | Patient Health Record ---
Author Organization [facility] Address [address] [place] [id number] Care Team Providers Care Financial Operations Analyst Name Role Phone Dillon Mcgovern MD Primary Care Provider Wyatt Arteaga Unavailable [phone] Allergies Allergen (clinical drug ingredient) Drug/Non Drug [...] one day; Duration: 1 day 06/19/2019 Active Immunizations Vaccine Route Administration Date Status Comme nts Influenza Unknown 06/18/2019 Refused Social History Tobacco Use: Social History Observation Description Date Details (start date - stop date) Current Smoker NA - NA Social History Drugs/Alcohol: Social Info Question Answer Notes Alcohol Screen Did you have a drink containing alcohol in the past year? No Points 0 Interpretation Negative Tobacco Use: Social Info Question Answer Notes Tobacco Use/Smoking Patient is a current smoker How often do you smoke cigarettes? every day How many cigarettes a day do you smoke? 5 or less How soon after you wake up do you smoke your first cigarette? 31-60 minutes Are you interested in quitting? Thinking about quitting Additional Details Category Social Info Options Details Miscellaneous: Marital status: single Occupation: unemployed Section Notes: Smoker 4 cigs QD; no sig alc ohol Problems Problem Type SNOMED Code ICD Code Onset Dates Problem Status W/U Status Risk Notes Problem Screening for malignant neoplasm of colon (654245080) Encounter for screening for malignant neoplasm of colon (Z12.11) Active confirmed Problem Preprocedural examination ([id number]) Preprocedural examination (Z01.818) Active confirmed Encounters Encounter Location Date Provider Diagnosis [facility] [address] [place] [address] 08/20/2024 Wyatt Peraza Plan Of Treatment Future Test Test Name Order Date COLONOSCOPY 06/18/2019 Insurance Providers Payer Name Payer Address Payer Phone Subscriber Number Group Number Insured Name Patient Relationship to Insured Coverage Start Date Coverage End Date MEDICARE OF [place] [address] [place] [id number] [phone] [id number] BETTY SÁNCHEZ Self - patient is the insured [email or web address] [address] [place] [address] [id number] BETTY SÁNCHEZ Self - patient is the insured Medical (General) History Medical History History ICD Code Denies [place],DM,CVA,Lung disease,renal dise ase Surgical History Surgery Date(Month/Year)
== END 2025-04-03 16:52 | disposition home or self-care (01) ==
LOC: HO.HMCH 15:09
DX: B35.0 Tinea barbae and tinea capitis (principal); F32.A Depression, unspecified; G43.909 Migraine, unspecified, not intractable, without status migrainosus; J45.909 Unspecified asthma, uncomplicated; F17.200 Nicotine dependence, unspecified, uncomplicated; R74.01 Elevation of levels of liver transaminase levels; E78.5 Hyperlipidemia, unspecified; J32.9 Chronic sinusitis, unspecified

== ENCOUNTER → 2025-04-03 15:08 | Outpatient (BNVA) | payer MEDICARE, MEDICAID, SELFPAY | DX: B35.0 Tinea barbae and tinea capitis (principal); F32.A Depression, unspecified; G43.909 Migraine, unspecified, not intractable, without status migrainosus; J45.909 Unspecified asthma, uncomplicated; R74.01 Elevation of levels of liver transaminase levels; E78.5 Hyperlipidemia, unspecified; F17.200 Nicotine dependence, unspecified, uncomplicated; Z79.899 Other long term (current) drug therapy | CPT/HCPCS: 99212 ==